=== PATIENT | male | born 1950 | race Caucasian/White ===

== ENCOUNTER → 2016-11-03 | Outpatient (CLI) | payer MEDICARE, BC ==
[2016-11-03 09:10] LABS: EKG EKG PERFORMED
[2016-11-03 09:20] LABS: CH 33.1; CHCM 35.6; HCT 44.7 % (39.0-53.0); HDW 2.94; HGB 15.1 gm/dL (13.0-17.5); MCH 31.5 pg (25.0-35.0); MCHC 33.8 g/dL (31.0-37.0); MCV 93.2 fL (80.0-100.0); RDW 13.9 % (11.5-15.5); WBC 5.9 k/uL (3.8-10.6)
[2016-11-03 09:38] LABS: INR 1.1 (<1.2); Partial Thromboplastin Time 27.7 sec (22.0-30.0); Prothrombin Time 11.3 sec (9.0-12.0)
[2016-11-03 09:46] LABS: ALT 38 U/L (21-72); AST 22 U/L (17-59); Alkaline Phosphatase 70 U/L (38-126); Anion Gap 9 mmol/L; Blood Urea Nitrogen 11 mg/dL (9-20); Calcium 9.1 mg/dL (8.4-10.2); Carbon Dioxide 25 mmol/L (22-30); Chloride 106 mmol/L (98-107); Glucose 98 mg/dL (74-99); Non-African American GFR(MDRD) >60 (>60 ml/min/1.73 sqM); Potassium 4.3 mmol/L (3.5-5.1); Sodium 140 mmol/L (137-145); Total Bilirubin 0.9 mg/dL (0.2-1.3); Total Protein 6.9 g/dL (6.3-8.2)
[2016-11-03 10:16] LABS: Appearance,Urine Clear (Clear); Bilirubin,Urine Negative (Negative); Glucose,Urine (UA) Negative (Negative); Ketones,Urine Negative (Negative); Leukocyte Esterase,Urine Negative (Negative); Nitrite,Urine Negative (Negative); PH, Urine 6.5 (5.0-8.0); Protein,Urine Negative (Negative); UA Billing (MACRO vs. MICRO) CHEM; Urobilinogen,Urine <2.0 mg/dL (<2.0)
== END | disposition home or self-care (01) ==
LOC: LABPAT 08:54
PROVIDERS: ATTEND Orthopaedic Surgery Sports Medicine
DX: Z01.810 Encounter for preprocedural cardiovascular examination (principal); Z01.812 Encounter for preprocedural laboratory examination
CPT/HCPCS: 80053; 81003; 85027; 85610; 85730; 87070; 93005

== ENCOUNTER 2016-11-20 10:29 | Inpatient (IN) | payer MEDICARE, BC ==
[2016-11-12 15:28] VITALS: BMI 29.4
[~2016-11-20 10:29] MED LIST: ACETAMINOPHEN TAB 500 MG TAB PO ONE; DEXAMETHASONE SOD PHOSPHATE 10 MG/ML 1 ML VIAL IV ONE; LIDOCAINE 1% 20 ML VIAL (10MG/ML) FOR IV START INTRADERMA PRN; MELOXICAM 7.5 MG TAB PO ONE; MIDAZOLAM 2 MG/2 ML VIAL IV PRN; ONDANSETRON 4 MG/2 ML VIAL IVP ONE; ONDANSETRON 4 MG/2 ML VIAL IVP PRN; SCOPOLAMINE 1.5MG/72HR PATCH TRANSDERM ONE; TRANEXAMIC ACID 1,000 MG in SODIUM CHLORIDE 0.9% 100 ML IVPB ONE; ceFAZolin 2 GM in SODIUM CHLORIDE 0.9% 100 ML IVPB ONE
[2016-11-20] MEDS: LACTATED RINGERS 1,000 ML IV SCH (11:09)
[2016-11-20] MEDS ORDERED: PROPOFOL 10 MG/ML 20 ML VIAL IV ONE (12:12)
[2016-11-20] MEDS ORDERED: ceFAZolin 3,000 MG in SODIUM CHLORIDE 0.9% IRRIGATIO 3,000 ML IRRIGATION ONE (12:12)
[2016-11-20] MEDS ORDERED: LIDOCAINE 1% INJ 10MG/ML (20 ML MDV) ONE (12:12)
[2016-11-20] MEDS ORDERED: TRANEXAMIC ACID 1,000 MG/10 ML VIAL ONE (12:12)
[2016-11-20] MEDS ORDERED: SODIUM CHLORIDE 0.9% 100 ML BAG ONE (12:12)
[2016-11-20] MEDS ORDERED: MORPHINE SULFATE (PF) 0.3 MG/0.3 ML SYR ONE (12:12)
[2016-11-20] MEDS ORDERED: MIDAZOLAM 2 MG/2 ML VIAL ONE (12:12)
[2016-11-20] MEDS ORDERED: fentaNYL (PF) 50 MCG/ML 2 ML AMP ONE (12:12)
[2016-11-20] MEDS: ROPIVACAINE 246.25 MG, EPINEPHrine 0.5 MG, KETOROLAC 30 MG, cloNIDine HCL/PF 80 MCG, WA... MISCELLANE ONE ×10 (12:42→13:36)
[2016-11-20] MEDS ORDERED: LACTATED RINGERS 1,000 ML IV ONE (14:06)
[2016-11-20] MEDS ORDERED: NALOXONE 0.4 MG/ML 1 ML VIAL IV PRN ×2 (14:26→16:13)
[2016-11-20] MEDS ORDERED: ONDANSETRON 4 MG/2 ML VIAL IVP PRN ×2 (14:26→16:13)
[2016-11-20] MEDS ORDERED: HYDROcodone/APAP 7.5-325MG 1 EACH TAB PO PRN ×2 (14:26)
[2016-11-20] MEDS ORDERED: NA PHOS,M-B/NA PHOS,DI-BA 133 ML ENEMA RECTAL PRN (14:26)
[2016-11-20] MEDS ORDERED: HYDROmorphone 1 MG/ML 1 ML SYRINGE IVP PRN ×3 (14:26)
[2016-11-20] MEDS ORDERED: ACETAMINOPHEN TAB 325 MG TAB PO PRN (14:26)
[2016-11-20] MEDS ORDERED: BISACODYL 10 MG SUPP RECTAL PRN (14:26)
[2016-11-20] MEDS ORDERED: DIAZEPAM 5 MG TAB PO PRN (14:26)
[2016-11-20] MEDS ORDERED: MAGNESIUM HYDROXIDE 2,400 MG/10 ML CUP PO PRN (14:26)
[2016-11-20] MEDS ORDERED: TEMAZEPAM 15 MG CAP PO PRN (14:26)
[2016-11-20] MEDS ORDERED: traMADol 50 MG TAB PO PRN (14:26)
--- NOTE | 2016-11-20 15:16 | XR ---
EXAMINATION TYPE: XR knee limited RT DATE OF EXAM: 11/20/2016 COMPARISON: NONE TECHNIQUE: Two views submitted HISTORY: Post op FINDINGS: There is a prosthetic knee in near anatomic alignment. There is soft tissue edema and emphysema. IMPRESSION: 1. Postoperative change. Appears in near-anatomic alignment
[2016-11-20] MEDS ORDERED: MORPHINE SULFATE 4 MG/ML SYRINGE IVP PRN (16:13)
[2016-11-20] MEDS: diphenhydrAMINE 50 MG/ML 1 ML VIAL IVP PRN (16:24)
[2016-11-20] MEDS: ASPIRIN 325 MG TAB PO SCH (20:47)
[2016-11-20] MEDS: SENNOSIDES-DOCUSATE SODIUM 1 EACH TAB PO SCH (20:47)
[2016-11-20] MEDS: ceFAZolin 2 GM in SODIUM CHLORIDE 0.9% 100 ML IVPB SCH (20:47)
--- NOTE | 2016-11-20 23:04 | CONS ---
CONSULTATION DATE OF CONSULTATION: 11/20/2016 REASON FOR CONSULTATION: Medical management requested by Dr. Paredes. CONSULTATION: This is a very pleasant 66-year-old patient of Dr. Bustos. His is present at bedside. The patient's chronic stable medical conditions include hypertension and arthritis in the joints. The patient also has diverticulosis. Patient did undergo right total knee arthroplasty. Pain is well controlled. Postoperatively the patient did have some nausea. Denies any cardiac history. No chest pain or shortness of breath. Lying in bed. REVIEW OF SYSTEMS: CONSTITUTIONAL: Tired. HEENT: None. RESPIRATORY: None. CARDIOVASCULAR: None. GASTROINTESTINAL: As above. : None. MUSCULOSKELETAL: Pain in multiple joints, including the other knee. DERMATOLOGIC: None. HEMATOLOGIC: None. LYMPHATIC: None. PSYCHIATRY: None. NEUROLOGIC: None. PAST MEDICAL HISTORY: 1. Hypertension. 2. Osteoarthritis. 3. Diverticulitis. 4. Hepatitis as a teenager. 5. Rheumatic fever and heart murmur as a child. PAST SURGICAL HISTORY: 1. Joint replacement. 2. Four to five arthroscopic surgical bilateral knees. 3. Bilateral rotator cuff repair. 4. Right wrist surgery. 5. Left elbow surgery. 6. Bilateral Achilles tendon repair. 7. Right hip replaced. 8. Left knee replaced. 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 Does not smoke or drink alcohol. Retired. . FAMILY HISTORY: Reviewed; lung cancer. HOME MEDICATIONS: 1. PreserVision Areds 2 soft gel 1 capsule p.o. daily. 2. Cozaar 50 mg p.o. daily. 3. Eagle 5 one to two tablets q.6 hours p.r.n. 4. Flexeril 10 mg q.8 p.r.n. ALLERGIES: NONE. PHYSICAL EXAMINATION: Temperature 97, pulse 47, respiration 16, blood pressure 109/58, pulse ox 97% on room air. GENERAL APPEARANCE: Average build. Lying in bed. Comfortable. EYES: Pupils equal. Conjunctivae normal. HEENT: Oral cavity normal. NECK: JVD unable to assess. Mass not palpable. RESPIRATORY: Effort normal. LUNGS: Fair air entry. CARDIOVASCULAR: First and second sounds normal. No edema. ABDOMEN: Soft, non-tender. Liver and spleen not palpable. LYMPHATICS: No lymph node palpable in neck or axillae. PSYCHIATRY: Alert and oriented x3. Mood and affect normal. EXTREMITIES: Right knee in a dressing. INVESTIGATIONS: Blood work from 11/03/2016 shows white count of 5.9, hemoglobin 15.1, potassium 4.3. BUN creatinine normal. EKG from 11/03/2016 shows sinus bradycardia. ASSESSMENT: 1. Right total knee arthroplasty. 2. Primary osteoarthritis in multiple joints, including the left knee. 3. Colonic diverticulosis, chronic, asymptomatic. 4. Essential hypertension. 5. Nausea as a side effect of pain medication. 6. Sinus bradycardia, physiological. PLAN: Patient is getting aspirin 325 p.o. b.i.d. for DVT prophylaxis per Dr. Paredes. Home medications will be resumed. Care was discussed with patient and his at the bedside. Cozaar will be resumed. Questions were answered. The patient should follow up with Dr. Bustos upon discharge. Thank you, Dr. Paredes. MMSALVADOR / TYRESE: [id number] /
[2016-11-21] MEDS: diphenhydrAMINE 50 MG/ML 1 ML VIAL IVP PRN ×2 (02:22→11:23)
[2016-11-21] MEDS: ceFAZolin 2 GM in SODIUM CHLORIDE 0.9% 100 ML IVPB SCH (04:50)
[2016-11-21 07:46] LABS: Basophils % (A) 0 %; CH 31.8; Eosinophils % (A) 0 %; HCT 36.9 % (39.0-53.0); HGB 12.7 gm/dL (13.0-17.5); Luc # (Auto) 0.12; Luc % (Auto) 1; Lymphocytes # (A) 0.7 k/uL (1.0-4.8); Lymphocytes % (A) 5 %; MCH 31.5 pg (25.0-35.0); MCHC 34.5 g/dL (31.0-37.0); MCV 91.3 fL (80.0-100.0); Mean Platelet Volume 7.9; Monocytes # (A) 0.7 k/uL (0-1.0); Monocytes % (A) 5 %; Neutrophils # (A) 13.2 k/uL (1.3-7.7); Neutrophils % (A) 90 %; RBC 4.04 m/uL (4.30-5.90); RDW 13.3 % (11.5-15.5); WBC 14.7 k/uL (3.8-10.6)
[2016-11-21] MEDS: ASPIRIN 325 MG TAB PO SCH ×2 (08:25→20:49)
[2016-11-21] MEDS: MULTIVITAMINS, THERA 1 EACH TAB PO SCH (08:25)
--- NOTE | 2016-11-21 08:39 | OP ---
OPERATIVE REPORT DATE OF PROCEDURE: 11/20/2016. PREOPERATIVE DIAGNOSIS: Right knee osteoarthrosis. POSTOPERATIVE DIAGNOSIS: Right knee osteoarthrosis. OPERATION: Right total knee arthroplasty. SURGEON: Adrien Paredes MD. SENIOR DEVOPS ENGINEER: Michael Hadley PA-C. ANESTHESIA: Spinal with sedation. ESTIMATED BLOOD LOSS: 100 mL. TOURNIQUET TIME: 63 minutes at 250 mmHg. COMPLICATIONS: None apparent. DRAINS: None. DISPOSITION: Postanesthesia care unit. INDICATIONS: Yrn is a 66-year-old male with longstanding history of right knee pain. His history and physical examination are consist with advanced right knee osteoarthrosis. He has been through significant nonoperative management up to this point. Further treatment options were discussed. He has decided to go for the right total knee arthroplasty. The risks of procedure were discussed with him in detail. These risks include, but are not limited to, risk of infection, nerve damage, bleeding, pain, and a small risk of deep vein thrombosis which could lead to fatal pulmonary embolism. There is also risk of loosening of the implant which could require revision operation. The patient understands these risks. All of his questions were answered to his satisfaction. An appropriate informed consent was obtained. PROCEDURE: The patient is identified in the preoperative holding area. Surgical sites marked by both the patient and myself. He is given 2 g of Ancef IV for prophylactic purposes. He was then transferred to the operative suite, was placed supine on the operating table. Spinal anesthetic was then administered and dosed per the Anesthesia Department without apparent complication. Examination under anesthesia was then performed. The patient was 2-3 degrees shy of full extension. He had 100 degrees of flexion. The medial collateral ligament, lateral collateral ligament and posterior cruciate ligaments were stable. Tourniquet was then placed high on the right upper thigh well-padded in preparation for surgery. The patient's right lower extremity then prepped and draped in usual sterile fashion. Standard surgical pause then undertaken to ensure that we were operating the correct site and that appropriate preop antibiotics were given. All staff in the room in agreement and we proceeded. The outlines of the patella were marked with surgical pen. A planned 12 cm vertical incision centered over the patella was marked with surgical pen. Leg was then exsanguinated with an Esmarch dressing. The knee was then flexed and tourniquet was inflated to 250 mmHg. The total tourniquet time for the procedure was 63 minutes. Incision was then made with a 10 blade scalpel. Dissection was carried out sharply of the overlying fascia. Great care was taken to minimize the skin flaps. The knee was then exposed using a standard medial parapatellar approach. A small cuff of quadriceps tendon was left for suturing. He was in a bit of varus preoperatively. A standard medial release was then made. Superficial medial collateral ligament was dissected off of the bone around the posterior aspect of the proximal tibia. The medial meniscus was then excised as well. The lateral meniscus was also released anteriorly. The leg was then externally rotated. The patella was then everted. The knee was flexed. The retractors were then placed to protect the collateral ligaments. I then proceeded to remove the infrapatellar fat pad. This was excised sharply tangentially with fibers of the patellar tendon. I then proceeded to remove peripheral osteophytes. This was done with a rongeur. I then proceeded with the distal femoral resection. He did have near full extension. A planned 9 mm resection was then done. The femoral canal was then entered in the midline of the femur approximately 10 mm anterior to the origin of the posterior cruciate ligament. The orlando was then advanced down the center of the femur and placed intramedullary. Based on preop radiographs the angle between the anatomic and mechanical axis of the femur was approximately 4-5 degrees. The valgus angle of this femoral cutting guide was then set at 4 degrees for the right knee. The distal femoral cutting guide was then advanced over the intramedullary orlando. This was seated firmly against the femur. I then as mentioned planned to take 9 mm off the distal femur. The cutting block was then secured onto the femur with pins. The jig was then removed. The distal femoral cut was made through the slot of the block. The pins were then removed. The distal femoral cutting block was removed. The accuracy of the distal femoral cut was checked with 2 flat bars. I then proceeded to femoral sizing. The posterior referencing sizing guide was held firmly against the resected distal surface of the femur. Posterior condyles were then resting on the posterior plane of the guide. The sizing stylus was then placed on the anterior femur. The size was measured at size 10. I then assessed for femoral rotation. The plan was for 3 degrees of external rotation. 3 degrees of external rotation was placed onto the jig. These holes were then marked. I then confirmed the rotation by 3 separate methods. This was done using the epicondylar axis as well as Whitesides line and posterior referencing. It was deemed that the external rotation was proper. I then went forward with placing the femoral cutting block. This was placed over the previously placed pin holes. The Angel[place] was then placed on the anterior slots to ensure that we would not notch the anterior femur with the anterior femoral cut. I then proceeded with the anterior femoral cut. This was flush with the anterior cortex of the femur. The posterior cuts were then made followed by the anterior chamfer cut, and then the posterior chamfer cut. The cutting block was then removed. Throughout the resection the collateral ligaments were protected with retractors. I then placed a trial size 10 femur. It fit very nicely medial-lateral and fit flush with the distal end of the femur. The drill holes were then made. I then proceeded with the tibial cut. I planned for cruciate retaining knee. The guide was then placed and set for varus, valgus and for slope. The height was set for approximate 2 mm resection from the medial tibial plateau which was the lower side. I was happy with the alignment and amount of resection. The cutting block was then pinned to the proximal tibia. The alignment orlando was removed and the proximal tibia was resected with a reciprocating saw. Again this was done with retractors protecting the collateral ligaments as well as the posterior cruciate ligament. I then proceeded to evaluate the flexion and extension gaps. A 10 mm block was then placed. The flexion-extension gaps were equal. I then proceeded with resection of posterior osteophytes. He had very minimal posterior osteophytes. This was done using a curved osteotome. This resected the posterior osteophytes and posterior capsular stripping was also done off the posterior aspect of the femur at this time. The osteophytes were then removed. I then proceeded with resection of the patella. The thickness of patella was measured using the caliper. The thickness was 24 mm. The thickness of the anticipated patellar dome was then taken into account. Resection was then performed and confirmed to be equal in 4 quadrants using a caliper. Approximately 14 mm of bone remained after the resection. A 38 x 9.5 mm standard patellar trial was then placed. The holes were then drilled. The trial was then placed. I then proceeded with sizing the tibial plate. A size E tibial plate fit very nicely. I then placed the trial femur tibial tray and patellar button. A 10 mm trial tibial insert was also placed. The components fit very nicely. He had full flexion and extension. The flexion-extension gaps were equal and stable to varus and valgus stress. The patella tracked appropriately. The tibial tray rotation was then marked with a Bovie. This was externally rotated properly. I then proceed with tibial preparation. I first drilled the femoral holes and removed femoral component. The tibial tray was then set for proper external rotation, as well as medial lateral placement onto the tibia. It was then pinned into place. I then proceeded with punching the keel. I then decided to proceed with cementing of all of our components. The knee was thoroughly irrigated with sterile saline solution via pulse lavage. The lateral geniculate artery was identified and cauterized. All blood was removed from the bone of the tibia, femur and patella with pulse lavage. I then proceed with cementing. Two packs of antibiotic bone cement were prepared on the back table by the director surgical. I then proceed with cementing of the tibia first. The cement was impacted into the keel as well as deeply seated into the bone. A second coat of cement was then placed. The tibia was then impacted into place. Excess cement was removed with Sanjay's and jokers. I then proceeded with cementing of the femoral component. Femoral component was also cemented using standard technique. Excess cement was removed. A 10 mm trial insert was then placed into the knee. It was brought into full extension with a constant axial load placed until the cement hardened. The patellar component was then cemented. This held firmly with a compressive device until the cement dried. When the cement had dried, the knee was taken out of extension. All excess cement was removed from around the prosthesis. I then trialed the knee with a 10 mm insert. The flexion-extension gaps were appropriate. The knee was stable. It came into full extension. I decided to go for the 10 mm cross-linked cruciate-retaining tibial insert. Polyethylene was then placed onto the tibial tray and locked. The knee was then reduced. The knee was again further irrigated with sterile saline solution with antibiotic added. The tourniquet was then deflated. Total tourniquet time for the procedure was 63 minutes at 250 mmHg. Final components were a [place] persona size 10 cruciate-retaining femoral component, a size E tibial tray, a 10 mm cruciate retaining polyethylene insert and a 38 x 9.5 mm patella. I then proceeded with closure. Again, the knee was thoroughly irrigated. The quadriceps tendon and medial retinaculum were reapproximated with #2 Ethibond suture. The extensor mechanism was then closed with a running #2 Quill suture. Subcutaneous tissues were then closed with 2-0 Vicryl interrupted suture. The skin was closed with a running 3-0 Quill suture. Dermabond was applied to the incision. Sterile compressive dressings were then applied. All sponge, needle counts were deemed correct prior to closure. The patient tolerated the procedure apparent complication. He was transferred recovery room in stable condition. MMODL / IJN: [id number] /
--- NOTE | 2016-11-21 09:38 | P.PN ---
Subjective Principal diagnosis: Status post right total knee arthroplasty Patient is pleasant 66-year-old male seen at bedside this morning. He's postop day #1 from right total knee arthroplasty. He has pain at surgical site which is expected. He has no new complaints. Review of systems negative for numbness , tingling, calf pain, fever, chills, chest pain, shortness breath or other. Objective - Vital Signs Vital signs: Vital Signs Temp 97.6 F 11/21/16 07:20 Pulse 52 L 11/21/16 07:20 Resp 18 11/21/16 07:20 BP 119/75 11/21/16 07:20 Pulse Ox 97 11/21/16 07:20 Intake & Output 11/20/16 11/21/16 11/21/16 18:59 06:59 18:59 Intake Total 1301 800 Output Total 650 1700 Balance 651 800 -1700 Weight 92.986 kg Intake: IV 1301 Intake, IV Titration 800 Amount Lactated Ringers 1,000 ml 800 @ 100 mls/hr IV .Q10H MARLENA Rx#:[id number] Output: Urine 550 1700 Uretheral (Mcnally) 1700 Estimated Blood Loss 100 Other: Voiding Method Indwelling Catheter - Exam Inspection of the right lower extremity shows a benign surgical wound. There is no active bleeding or drainage. Neurovascular status with motor and sensation is intact throughout the right lower extremity. Calf is soft and nontender. There is 2+ dorsalis pedis pulse and less than 2 second cap refill. - Constitutional General appearance: Present: no acute distress - Psychiatric Psychiatric: Present: A&O x's 3, appropriate affect, intact judgment & insight - Labs CBC & Chem 7: 11/21/16 07:14 Labs: Abnormal Lab Results - Last 24 Hours (Table) 11/21/16 Range/Units 07:14 WBC 14.7 H (3.8-10.6) k/uL RBC 4.04 L (4.30-5.90) m/uL Hgb 12.7 L (13.0-17.5) gm/dL Hct 36.9 L (39.0-53.0) % Neutrophils # 13.2 H (1.3-7.7) k/uL Lymphocytes # 0.7 L (1.0-4.8) k/uL Assessment and Plan (1) Osteoarthritis of right knee Narrative/Plan: He will continue with routine postop orthopedic protocol including pain management, wound care, physical therapy, DVT prophylaxis and medical management. Expect discharge to home in the next 1-2 days. Status: Acute Time with Patient: Less than 30
--- NOTE | 2016-11-21 12:18 | P.PN ---
Progress Note - Text DATE OF SERVICE: 11/21/2016 PRESENTING COMPLAINT: Knee pain HISTORY OF PRESENT ILLNESS: 66-year-old male status post right total knee arthroplasty. INTERVAL HISTORY: 11/21/2016: Sitting up in a recliner appears comfortable. Didn't sleep well feeling a little sleepy and tired today , no nausea no vomiting, Tolerating his diet eating 100 percent. Working with physical therapy, no BM yet. REVIEW OF SYSTEMS: Done for constitutional ,cardiovascular, GI, pulmonary with relevant findings as above. CURRENT MEDICATIONS Aspirin 325 mg by mouth twice a day, Dulcolax 10 mg rectal daily when necessary. Valium 2.5 mg by mouth every 8 hours. Benadryl 25 mg IV push every 6 hours when necessary, senna/docusate sodium 2 tabs by mouth at bedtime, temazepam 15 mg by mouth at bedtime, tramadol 50 mg by mouth every 6 hours. PHYSICAL EXAM VITAL SIGNS: Temperature 97.6, pulse 52, respiratory rate 18, blood pressure 119/75, oxygen saturation 97% on room air. GENERAL APPEARANCE: Sitting in the recliner, appears comfortable. EYES: Pupils equal. Conjunctiva normal. NECK: JVD not raised. Mass not palpable. RESPIRATORY: Respiratory effort normal. Lungs clear to auscultation. CARDIOVASCULAR: First and second sounds normal. No edema. ABDOMEN: Soft. Liver and spleen not palpable. No tenderness. No mass palpable. PSYCHIATRY: Alert and oriented x3. Mood and affect normal. EXTREMITIES: Right knee covered with dry dressing. INVESTIGATIONS: White blood cell count 14.7, hemoglobin 12.7. ASSESSMENT: -Right total knee arthroplasty. -Leukocytosis, reactive likely from surgery. -Primary stressor arthritis multiple joints, including the left knee. -Colonic diverticulosis, chronic, asymptomatic. -Essential hypertension. -Nausea as a side effect pain medication, resolved -Sinus bradycardia, physiological. PLAN: Continue current medication treatment plan, discharge planning for the next 24- 48 hours, questions answered. We'll follow closely. SEA[employer]OD SERVICE TEAM MEMBER statement: Patient was seen and examined by nurse practitioner Michelle Segundo and all elements of the case discussed with attending Dr. Valente
[2016-11-21] MEDS: LACTATED RINGERS 1,000 ML IV SCH (12:53)
--- NOTE | 2016-11-21 12:55 | P.PN ---
Progress Note - Text Date:11/21 Time:701am Patient is status post tkr]. Patient seen this morning with VAS score of 2.no c/ o of pruritus, no c/o nausea/vomiting, comfortable and doing well.
[2016-11-21] MEDS: HYDROcodone/APAP 10-325MG 1 EACH TAB PO PRN ×3 (13:25→20:49)
[2016-11-21] MEDS: diphenhydrAMINE 25 MG CAP PO PRN (17:37)
[2016-11-21] MEDS: SENNOSIDES-DOCUSATE SODIUM 1 EACH TAB PO SCH (20:49)
[2016-11-22] MEDS: HYDROcodone/APAP 10-325MG 1 EACH TAB PO PRN ×5 (01:08→23:34)
[2016-11-22 03:41] VITALS: RESP 16
[2016-11-22] MEDS: LACTATED RINGERS 1,000 ML IV SCH ×3 (06:41→08:17)
[2016-11-22] MEDS: MULTIVITAMINS, THERA 1 EACH TAB PO SCH (06:55)
[2016-11-22] MEDS: ASPIRIN 325 MG TAB PO SCH ×2 (06:55→20:04)
[2016-11-22] MEDS: diphenhydrAMINE 25 MG CAP PO PRN ×2 (06:58→18:38)
[2016-11-22] MEDS ORDERED: KETOROLAC 30 MG/ML 1 ML VIAL IVP STA (09:28)
--- NOTE | 2016-11-22 09:32 | P.PN ---
Subjective Principal diagnosis: Osteoarthritis right knee. Status post total right knee arthroplasty. This is a 66-year-old male who is status post total right knee arthroplasty. He is doing fairly well from an orthopedic standpoint. He states that he had a bad night last night with pain. He is still rating his pain at 8/10. He does not feel ready for discharge today. Objective - Vital Signs Vital signs: Vital Signs Temp 96.4 F L 11/22/16 06:50 Pulse 69 11/22/16 06:50 Resp 16 11/22/16 07:00 BP 121/58 11/22/16 06:50 Pulse Ox 99 11/22/16 06:50 Intake & Output 11/21/16 11/22/16 11/22/16 18:59 06:59 18:59 Intake Total 360 240 Output Total 2300 Balance -1940 240 Weight 92.986 kg Intake: Oral 360 240 Output: Urine 2300 Uretheral (Mcnally) 1700 Other: Voiding Method Toilet Toilet # Voids 1 1 - Exam This is a pleasant 66-year-old male in no acute distress. He is alert and oriented 3. Exam of the right lower extremity reveals that his incision looks good. There is no erythema or ecchymosis. There is mild soft tissue swelling about the knee and lower leg. There is mild pain with palpation about the proximal calf and behind the knee. He has full foot and ankle motion without difficulty or pain. Homans is negative. Neurovascular status to the lower extremity is intact. - Labs CBC & Chem 7: 11/21/16 07:14 Assessment and Plan (1) Status post right knee replacement Status: Acute (2) Osteoarthritis of right knee Status: Acute Plan: The clinical findings are discussed the patient. We'll continue to work on his pain management. We will plan discharge to home tomorrow.
[2016-11-22] MEDS: hydrOXYzine PAMOATE 25 MG CAP PO PRN ×3 (12:09→23:34)
[2016-11-22] MEDS ORDERED: MAGNESIUM HYDROXIDE 2,400 MG/10 ML CUP PO PRN (15:26)
--- NOTE | 2016-11-22 15:29 | P.PN ---
Progress Note - Text DATE OF SERVICE: 11/22/2016 PRESENTING COMPLAINT: Knee pain HISTORY OF PRESENT ILLNESS: 66-year-old male status post right total knee arthroplasty. INTERVAL HISTORY: 11/22/2016: Lying in bed appears tired. States he really didn't sleep well at all last night only a couple of hours of sleep. No nausea no vomiting. Tolerating his diet eating about 75-100% of his meals. Continues to work with physical therapy , no BM yet. 11/21/2016: Sitting up in a recliner appears comfortable. Didn't sleep well feeling a little sleepy and tired today , no nausea no vomiting, Tolerating his diet eating 100 percent. Working with physical therapy, no BM yet. REVIEW OF SYSTEMS: Done for constitutional ,cardiovascular, GI, pulmonary with relevant findings as above. CURRENT MEDICATIONS Aspirin 325 mg by mouth twice a day, Dulcolax 10 mg rectal daily when necessary. Valium 2.5 mg by mouth every 8 hours. Benadryl 25 mg IV push every 6 hours when necessary, senna/docusate sodium 2 tabs by mouth at bedtime, temazepam 15 mg by mouth at bedtime, tramadol 50 mg by mouth every 6 hours. PHYSICAL EXAM VITAL SIGNS: Temperature 98.1, pulse 54, respirations 16, blood pressure 133/75, oxygen saturation 97% on room air. GENERAL APPEARANCE: Lying in the bed, appears tired. EYES: Pupils equal. Conjunctiva normal. NECK: JVD not raised. Mass not palpable. RESPIRATORY: Respiratory effort normal. Lungs clear to auscultation. CARDIOVASCULAR: First and second sounds normal. No edema. ABDOMEN: Soft. Liver and spleen not palpable. No tenderness. No mass palpable. PSYCHIATRY: Alert and oriented x3. Mood and affect normal. EXTREMITIES: Right knee covered with dry dressing. INVESTIGATIONS: None new ASSESSMENT: -Right total knee arthroplasty. -Leukocytosis, reactive likely from surgery. -Primary stressor arthritis multiple joints, including the left knee. -Colonic diverticulosis, chronic, asymptomatic. -Essential hypertension. -Nausea as a side effect pain medication, resolved -Sinus bradycardia, physiological. PLAN: Continue current medication treatment plan, discharge planning for the next 24- 48 hours, questions answered. We'll follow closely. TIMBER SUPERVISOR statement: Patient was seen and examined by nurse practitioner Michelle Segundo and all elements of the case discussed with attending Dr. Valente
[2016-11-22] MEDS: MAGNESIUM HYDROXIDE 2,400 MG/10 ML CUP PO SCH (20:04)
[2016-11-22] MEDS: SENNOSIDES-DOCUSATE SODIUM 1 EACH TAB PO SCH (20:04)
[2016-11-23] MEDS: hydrOXYzine PAMOATE 25 MG CAP PO PRN ×2 (04:47→09:52)
[2016-11-23] MEDS: HYDROcodone/APAP 10-325MG 1 EACH TAB PO PRN ×2 (04:47→09:52)
[2016-11-23 07:24] LABS: Basophils # (A) 0.1 k/uL (0-0.2); Basophils % (A) 1 %; CH 32.4; CHCM 35.2; Eosinophils # (A) 0.3 k/uL (0-0.7); Eosinophils % (A) 4 %; HCT 33.6 % (39.0-53.0); HDW 2.99; HGB 11.5 gm/dL (13.0-17.5); Luc % (Auto) 2; Lymphocytes # (A) 1.2 k/uL (1.0-4.8); Lymphocytes % (A) 17 %; MCH 31.8 pg (25.0-35.0); MCHC 34.3 g/dL (31.0-37.0); MCV 92.8 fL (80.0-100.0); Mean Platelet Volume 7.8; Monocytes # (A) 0.6 k/uL (0-1.0); Monocytes % (A) 9 %; Neutrophils # (A) 4.5 k/uL (1.3-7.7); Neutrophils % (A) 68 %; RBC 3.62 m/uL (4.30-5.90); RDW 14.2 % (11.5-15.5); WBC 6.6 k/uL (3.8-10.6); WBC (Perox) 6.89
--- NOTE | 2016-11-23 08:58 | PN ---
PROGRESS NOTE DATE OF SERVICE: 11/21/2016. ATTENDING NOTE: This patient was seen and examined by me. I discussed with my nurse practitioner, Ms. Segundo. This patient was seen by me yesterday 11/21/16, status post right knee surgery. Sitting up. Some pain is present in the joint. Did work with physical therapy. No chest pain. No shortness of breath. EXAMINATION: On examination, afebrile, pulse 76, respiration 18, blood pressure 125/84. RESPIRATORY: Effort. Lungs, fair air entry. CARDIOVASCULAR: First and second sounds are normal. White count 14.7, hemoglobin 12.7. ASSESSMENT: 1. Right total knee arthroplasty. 2. Leukocytosis reactive likely from surgery. No clinical evidence of infection. Incision healing well. Follow with Orthopedics. Care was discussed with the patient. Continue current medication and treatment plan. MMODL / IJN: [id number] /
--- NOTE | 2016-11-23 09:44 | P.DS ---
Providers Date of admission: 11/20/16 10:29 Expected date of discharge: 11/23/16 Attending physician: Adrien Paredes Consults: 11/20/16 14:26 Consult Physician Routine Consulting Provider: Sina Bustos Consult Reason/Comments: post op medical management Do you want consulting provider notified?: Yes 11/20/16 15:44 Consult Physician Routine Consulting Provider: Mickey Valente Consult Reason/Comments: medical managment Do you want consulting provider notified?: Yes Primary care physician: Sina Bustos - Discharge Diagnosis(es) (1) Status post right knee replacement Current Visit: Yes Status: Acute (2) Osteoarthritis of right knee Current Visit: Yes Status: Acute Hospital Course: This is a 66-year-old male who was last seen with complaint of continued right knee pain. The patient has a known history of degenerative arthritis of the right knee and presents to discuss surgical options. After discussion and consideration the patient elects to proceed with total right knee arthroplasty. The patient is seen preoperatively by his primary care physician and cleared for surgery. The patient is admitted to [facility] for total right knee arthroplasty. The procedures performed without complication or sequelae. Patient is doing well postoperatively. Vital signs are stable at discharge. Labs are stable at discharge. the patient is ambulating well with walker with minimal assistance. The patient is discharged to home on postop day #3 pending medical clearance. Please see orders and refer to the [facility] rec for accurate list of medications. Patient Condition at Discharge: Good Plan - Discharge Summary New Discharge Prescriptions: New Aspirin 325 mg PO BID #60 tab Docusate [Colace] 100 mg PO BID #60 capsule HYDROcodone/APAP 10-325MG [Dalton 10-325] 1 tab PO Q4HR PRN #60 tab PRN Reason: Pain No Action Cyclobenzaprine [Flexeril] 10 mg PO Q8H PRN #20 tablet PRN Reason: Spasms Losartan [Cozaar] 50 mg PO DAILY HYDROcodone/APAP 5-325MG [Dalton 5-325] 1 - 2 tab PO Q6HR PRN PRN Reason: Pain Vit C/E/Zn/Coppr/Lutein/Zeaxan [Preservision Areds 2 Softgel] 1 cap PO DAILY Discharge Medication List Cyclobenzaprine [Flexeril] 10 mg PO Q8H PRN #20 tablet 10/21/13 [Rx] HYDROcodone/APAP 5-325MG [Dalton 5-325] 1 - 2 tab PO Q6HR PRN 11/12/16 [History] Losartan [Cozaar] 50 mg PO DAILY 11/12/16 [History] Vit C/E/Zn/Coppr/Lutein/Zeaxan [Preservision Areds 2 Softgel] 1 cap PO DAILY [History] Aspirin 325 mg PO BID #60 tab 11/21/16 [Rx] Docusate [Colace] 100 mg PO BID #60 capsule 11/21/16 [Rx] HYDROcodone/APAP 10-325MG [Dalton 10-325] 1 tab PO Q4HR PRN #60 tab 11/21/16 [Rx] Follow up Appointment(s)/Referral(s): Adrien Paredes MD [STAFF PHYSICIAN] - 2 Weeks [facility] Visiting Nurse, [NON-STAFF] - 1 Week Activity/Diet/Wound Care/Special Instructions: Take meds as directed Keep wound clean and dry Weight-bear as tolerated Follow up with Dr. Paredes in office May shower in 48 hours Discharge Disposition: HOME WITH HOME HEALTH SERVICES
[2016-11-23 09:51] VITALS: BP 151/72; TEMP 98.5
[2016-11-23] MEDS: MULTIVITAMINS, THERA 1 EACH TAB PO SCH (09:53)
[2016-11-23] MEDS: ASPIRIN 325 MG TAB PO SCH (09:53)
[2016-11-23] MEDS: MAGNESIUM HYDROXIDE 2,400 MG/10 ML CUP PO SCH (09:55)
[2016-11-23 10:38] VITALS: PULSE 81
--- NOTE | 2016-11-23 11:01 | PN ---
PROGRESS NOTE DATE OF SERVICE: 11/22/16 ATTENDING NOTE: This patient was seen and examined by me. I discussed this with the nurse practitioner Ms. Segundo. The patient status post right total knee arthroplasty. The patient did not sleep too well last night. Breathing is okay. No chest pain. PHYSICAL EXAMINATION: On exam, lungs are clear. Cardiovascular: First and second sounds normal. ASSESSMENT: Right total knee arthroplasty. PLAN: Continue current medication and treatment plan. Care was discussed with the patient and . FITO / TYRESE: [id number] /
--- NOTE | 2016-11-23 11:31 | US ---
EXAMINATION TYPE: US venous doppler duplex LE RT DATE OF EXAM: 11/23/2016 11:21 AM COMPARISON: CLINICAL HISTORY: Calf pain, R/O dvt. On aspirin. Rt knee replacement x . SIDE PERFORMED: Right TECHNIQUE: The lower extremity deep venous system is examined utilizing real time linear array sonog luis m with graded compression, doppler sonography and color-flow sonography. VESSELS IMAGED: External Iliac Vein (EIV) Common Femoral Vein Deep Femoral Vein Greater Saphenous Vein * Femoral Vein Popliteal Vein Small Saphenous Vein * Proximal Calf Veins (* superficial vessels) Right Leg: Appears negative for DVT No popliteal fossa lesion is seen. IMPRESSION: THIS EXAMINATION IS NEGATIVE FOR DVT WITHIN THE RIGHT LEG.
--- NOTE | 2016-11-23 17:46 | P.PN ---
Progress Note - Text DATE OF SERVICE: 11/23/2016 PRESENTING COMPLAINT: Knee pain HISTORY OF PRESENT ILLNESS: 66-year-old male status post right total knee arthroplasty. INTERVAL HISTORY: 11/23/2016: Lying in bed appears a bit more awake today states he slept better. No nausea or vomiting. Right knee sore, working with physical therapy. Tolerating his diet eating between 75% and 100% of his meals. Ambulatory with assistance. 11/22/2016: Lying in bed appears tired. States he really didn't sleep well at all last night only a couple of hours of sleep. No nausea no vomiting. Tolerating his diet eating about 75-100% of his meals. Continues to work with physical therapy , no BM yet. 11/21/2016: Sitting up in a recliner appears comfortable. Didn't sleep well feeling a little sleepy and tired today , no nausea no vomiting, Tolerating his diet eating 100 percent. Working with physical therapy, no BM yet. REVIEW OF SYSTEMS: Done for constitutional ,cardiovascular, GI, pulmonary with relevant findings as above. CURRENT MEDICATIONS Aspirin 325 mg by mouth twice a day, Dulcolax 10 mg rectal daily when necessary. Valium 2.5 mg by mouth every 8 hours. Benadryl 25 mg IV push every 6 hours when necessary, senna/docusate sodium 2 tabs by mouth at bedtime, temazepam 15 mg by mouth at bedtime, tramadol 50 mg by mouth every 6 hours. PHYSICAL EXAM VITAL SIGNS: Temperature 98.5, pulse 75, respirations 16, blood pressure 151/72, oxygen saturation 97% on room air. GENERAL APPEARANCE: Lying in the bed, appears comfortable. EYES: Pupils equal. Conjunctiva normal. NECK: JVD not raised. Mass not palpable. RESPIRATORY: Respiratory effort normal. Lungs clear to auscultation. CARDIOVASCULAR: First and second sounds normal. No edema. ABDOMEN: Soft. Liver and spleen not palpable. No tenderness. No mass palpable. PSYCHIATRY: Alert and oriented x3. Mood and affect normal. EXTREMITIES: Right knee covered with dry dressing. INVESTIGATIONS: White blood cell count 6.6, hemoglobin 11.5. ASSESSMENT: -Right total knee arthroplasty. -Leukocytosis, reactive likely from surgery. -Primary osteoarthritis multiple joints, including the left knee. -Colonic diverticulosis, chronic, asymptomatic. -Essential hypertension. -Nausea as a side effect pain medication, resolved -Sinus bradycardia, physiological. PLAN: Continue current medication treatment plan, patient stable for discharge from medical standpoint. Orthopedics to complete discharge today. KEYLINER statement: Patient was seen and examined by nurse practitioner Michelle Segundo and all elements of the case discussed with attending Dr. Valente
--- NOTE | 2016-11-24 21:08 | PN ---
PROGRESS NOTE DATE OF SERVICE: November 23, 2016. ATTENDING NOTE: This patient seen examined by me on 11/23/2016. I discussed with my nurse practitioner, Ms. Segundo. The patient doing better. Right knee pain has improved. Eating better. No chest pain. No shortness of breath. Lungs are clear. CARDIOVASCULAR: First and second sounds normal. Care was discussed with the patient. If discharged, should follow up with family doctor. MMODL / IJN: [id number] /
== END 2016-11-23 13:33 | disposition home health service (06) | DRG 470 ==
LOC: 2ORMAIN 10:29 → 3SUR 14:16
PROVIDERS: ADMIT Orthopaedic Surgery Sports Medicine; ATTEND Orthopaedic Surgery Sports Medicine
PROC: 0SRC0J9 Replacement of Right Knee Joint with Synthetic Substitute, Cemented, Open Approach (ICD-10-PCS; principal; 2016-11-20 12:00)
DX: M17.11 Unilateral primary osteoarthritis, right knee (principal); I10 Essential (primary) hypertension; M25.761 Osteophyte, right knee; R11.0 Nausea; Z96.641 Presence of right artificial hip joint; Z96.652 Presence of left artificial knee joint; K57.30 Diverticulosis of large intestine without perforation or abscess without bleeding; R00.1 Bradycardia, unspecified; T40.2X5A Adverse effect of other opioids, initial encounter; Z86.19 Personal history of other infectious and parasitic diseases; Z79.899 Other long term (current) drug therapy
CPT/HCPCS: 85025; 88300

== ENCOUNTER → 2017-10-08 | Outpatient (CLI) | payer MEDICARE, BC ==
--- NOTE | 2017-10-08 11:33 | US ---
EXAMINATION TYPE: US kidneys/renal and bladder DATE OF EXAM: 10/08/2017 COMPARISON: NONE CLINICAL HISTORY: R94.4 ABN RESULTS OF KIDNEYS. Abnormal labs, left back pain EXAM MEASUREMENTS: Right Kidney: 11.2 x 4.2 x 5.3 cm Left Kidney: 10.3 x 4.6 x 5.5 cm Right Kidney: No hydronephrosis or masses seen Left Kidney: No hydronephrosis or masses seen, dromedary hump seen Bladder: wnl, distended Bilateral Jets seen There is no evidence for hydronephrosis at this point in time. No nephrolithiasis is seen. No snow s are identified. The urinary bladder is anechoic. Bilateral ureteral jets are seen. IMPRESSION: No distinct abnormality appreciated.
== END | disposition home or self-care (01) ==
LOC: RADUSWWP 07:20
PROVIDERS: ATTEND Family Medicine
DX: R94.4 Abnormal results of kidney function studies (principal)
CPT/HCPCS: 76770

== ENCOUNTER 2018-01-09 04:58 | Observation (INO) | payer MEDICARE, BC ==
[2018-01-09] MEDS ORDERED: MORPHINE SULFATE 4 MG/ML SYRINGE IV STA (05:50)
[2018-01-09 05:52] LABS: Basophils # (A) 0.1 k/uL (0-0.2); Basophils % (A) 1 %; Eosinophils # (A) 0.2 k/uL (0-0.7); Eosinophils % (A) 2 %; HCT 45.3 % (39.0-53.0); HGB 15.5 gm/dL (13.0-17.5); Lymphocytes # (A) 1.1 k/uL (1.0-4.8); Lymphocytes % (A) 14 %; MCH 31.2 pg (25.0-35.0); MCHC 34.2 g/dL (31.0-37.0); MCV 91.4 fL (80.0-100.0); Mean Platelet Volume 7.1; Monocytes # (A) 0.6 k/uL (0-1.0); Monocytes % (A) 7 %; Neutrophils # (A) 5.8 k/uL (1.3-7.7); Neutrophils % (A) 75 %; Platelet Count 192 k/uL (150-450); RBC 4.95 m/uL (4.30-5.90); RDW 13.5 % (11.5-15.5); WBC 7.7 k/uL (3.8-10.6)
--- NOTE | 2018-01-09 05:53 | ED ---
Abdominal Pain HPI - General Chief Complaint: Abdominal Pain Stated Complaint: Abdominal Pain Time Seen by Provider: 01/09/18 05:00 Source: patient Mode of arrival: ambulatory Limitations: no limitations - History of Present Illness MD Complaint: abdominal pain Onset/Timin -: days(s) Location: LLQ Severity: moderate Quality: cramping, stabbing Consistency: colicky Improves With: nothing Worsens With: nothing Associated Symptoms: constipation - Related Data Home Medications Medication Instructions Recorded Confirmed HYDROcodone/APAP 5-325MG [Mars 1 - 2 tab PO Q6HR PRN 11/12/16 01/09/18 5-325] Losartan [Cozaar] 50 mg PO DAILY 11/12/16 01/09/18 Vit C/E/Zn/Coppr/Lutein/Zeaxan 1 cap PO DAILY 11/12/16 01/09/18 [Preservision Areds 2 Softgel] Previous Rx's Medication Instructions Recorded Cyclobenzaprine [Flexeril] 10 mg PO Q8H PRN #20 tablet 10/21/13 Aspirin 325 mg PO BID #60 tab 11/21/16 Docusate [Colace] 100 mg PO BID #60 capsule 11/21/16 HYDROcodone/APAP 10-325MG [Mars 1 tab PO Q4HR PRN #60 tab 11/21/16 10-325] Allergies Allergy/AdvReac Type Severity Reaction Status Date / Time No Known Allergies Allergy Verified 01/09/18 05:05 Review of Systems ROS Statement: Those systems with pertinent positive or pertinent negative responses have been documented in the HPI. ROS Other: All systems not noted in ROS Statement are negative. Constitutional: Denies: fever, chills Respiratory: Denies: cough, dyspnea Cardiovascular: Denies: chest pain, palpitations Gastrointestinal: Reports: abdominal pain, constipation. Denies: nausea, vomiting, diarrhea, melena, hematochezia Genitourinary: Denies: dysuria, hematuria Musculoskeletal: Denies: back pain Skin: Denies: rash Past Medical History Past Medical History: Hypertension, Skin Disorder Additional Past Medical History / Comment(s): HEPATITIS TEENAGER, RHEUMATIC FEVER AND HEART MURMUR CHILD. eccymosis History of Any Multi-Drug Resistant Organisms: None Reported Past Surgical History: Joint Replacement, Orthopedic Surgery Additional Past Surgical History / Comment(s): 4-5 ARTHROSCOPIC SURG. SUMMER KNEES , SUMMER ROT CUFF REPAIR, RT WRIST SURG, LT ELBOW SURG., SUMMER ACHILLES TENDON REPAIRS. RIGHT HIP REPLACEDMENT. Past Anesthesia/Blood Transfusion Reactions: No Reported Reaction Additional Past Anesthesia/Blood Transfusion Reaction / Comment(s): BP was low after last surg. Past Psychological History: No Psychological Hx Reported Smoking Status: Never smoker Past Alcohol Use History: None Reported Past Drug Use History: None Reported - Past Family History Mother Family Medical History: Cancer Additional Family Medical History / Comment(s): LUNG Father Family Medical History: Cancer Additional Family Medical History / Comment(s): BOWEL General Exam Limitations: no limitations General appearance: alert, in no apparent distress Head exam: Present: atraumatic, normocephalic Eye exam: Present: normal appearance. Absent: scleral icterus, conjunctival injection ENT exam: Present: normal oropharynx Neck exam: Present: normal inspection Respiratory exam: Present: normal lung sounds bilaterally. Absent: respiratory distress, wheezes, rales, rhonchi, stridor Cardiovascular Exam: Present: regular rate, normal rhythm, normal heart sounds. Absent: systolic murmur, diastolic murmur, rubs, gallop GI/Abdominal exam: Present: soft, tenderness (Left lower quadrant), hypoactive bowel sounds. Absent: distended, guarding, rebound, rigid, mass, pulsatile mass , hernia exam: Present: normal inspection, vertical testicular lie. Absent: scrotal swelling Extremities exam: Present: normal inspection, normal capillary refill. Absent: pedal edema, calf tenderness Back exam: Present: normal inspection. Absent: CVA tenderness (R), CVA tenderness (L) Neurological exam: Present: alert Skin exam: Present: warm, dry, intact, normal color. Absent: rash Course Vital Signs 01/09/18 01/09/18 05:01 06:02 Temperature 98.2 F Pulse Rate 58 L Respiratory 18 19 Rate Blood Pressure 165/80 O2 Sat by Pulse 97 Oximetry Medical Decision Making - Lab Data Result diagrams: 01/09/18 05:26 01/09/18 05:26 Lab Results 01/09/18 01/09/18 01/09/18 Range/Units 05:26 05:26 05:55 WBC 7.7 (3.8-10.6) k/uL RBC 4.95 (4.30-5.90) m/uL Hgb 15.5 (13.0-17.5) gm/dL Hct 45.3 (39.0-53.0) % MCV 91.4 (80.0-100.0) fL MCH 31.2 (25.0-35.0) pg MCHC 34.2 (31.0-37.0) g/dL RDW 13.5 (11.5-15.5) % Plt Count 192 (150-450) k/uL Neutrophils % 75 % Lymphocytes % 14 % Monocytes % 7 % Eosinophils % 2 % Basophils % 1 % Neutrophils # 5.8 (1.3-7.7) k/uL Lymphocytes # 1.1 (1.0-4.8) k/uL Monocytes # 0.6 (0-1.0) k/uL Eosinophils # 0.2 (0-0.7) k/uL Basophils # 0.1 (0-0.2) k/uL Sodium 139 (137-145) mmol/L Potassium 4.4 (3.5-5.1) mmol/L Chloride 107 (98-107) mmol/L Carbon Dioxide 24 (22-30) mmol/L Anion Gap 8 mmol/L BUN 13 (9-20) mg/dL Creatinine 1.21 (0.66-1.25) mg/dL Est GFR (CKD-EPI)AfAm 70 (>60 ml/min/1.73 sqM) Est GFR (CKD-EPI)NonAf 61 (>60 ml/min/1.73 sqM) Glucose 107 H (74-99) mg/dL Calcium 9.4 (8.4-10.2) mg/dL Total Bilirubin 0.7 (0.2-1.3) mg/dL AST 24 (17-59) U/L ALT 35 (21-72) U/L Alkaline Phosphatase 64 (38-126) U/L Total Protein 7.2 (6.3-8.2) g/dL Albumin 4.2 (3.5-5.0) g/dL Amylase 42 (30-110) U/L Lipase 90 (23-300) U/L Urine Color Light Yellow Urine Appearance Clear (Clear) Urine pH 5.5 (5.0-8.0) Ur Specific Ford 1.005 (1.001-1.035) Urine Protein Negative (Negative) Urine Glucose (UA) Negative (Negative) Urine Ketones Negative (Negative) Urine Blood Negative (Negative) Urine Nitrite Negative (Negative) Urine Bilirubin Negative (Negative) Urine Urobilinogen <2.0 (<2.0) mg/dL Ur Leukocyte Esterase Negative (Negative) Disposition Clinical Impression: Diverticulitis Disposition: ADMITTED IP TO THIS HOSP Condition: Fair Is patient prescribed a controlled substance at d/c from ED?: No Referrals: Sina Bustos DO [Primary Care Provider] - 1-2 days
[2018-01-09 06:00] LABS: Albumin 4.2 g/dL (3.5-5.0); Calcium 9.4 mg/dL (8.4-10.2); Potassium 4.4 mmol/L (3.5-5.1); Total Bilirubin 0.7 mg/dL (0.2-1.3); Total Protein 7.2 g/dL (6.3-8.2)
[2018-01-09 06:09] LABS: Appearance,Urine Clear (Clear); Bilirubin,Urine Negative (Negative); Blood,Urine Negative (Negative); Color,Urine Light Yellow; Glucose,Urine (UA) Negative (Negative); Ketones,Urine Negative (Negative); Leukocyte Esterase,Urine Negative (Negative); Nitrite,Urine Negative (Negative); PH, Urine 5.5 (5.0-8.0); Protein,Urine Negative (Negative); Specific Gravity,Urine 1.005 (1.001-1.035); Urobilinogen,Urine <2.0 mg/dL (<2.0)
--- NOTE | 2018-01-09 06:55 | XR ---
EXAM: XR Abdomen, 1 View CLINICAL HISTORY: ITS.REASON XR Reason: abdominal pain TECHNIQUE: Frontal supine view of the abdomen/pelvis. COMPARISON: No relevant prior studies available. FINDINGS: Gastrointestinal tract: Unremarkable. No dilation. Bones/joints: Unremarkable. IMPRESSION: Normal abdominal x-ray.
--- NOTE | 2018-01-09 07:17 | CT ---
EXAMINATION TYPE: CT abdomen pelvis wo con DATE OF EXAM: 01/09/2018 COMPARISON: Previous study dated 08/13/2011 HISTORY: LQ pain. Hx diverticulitis, renal stones CT DLP: 736.4 mGycm Automated exposure control for dose reduction was used. FINDINGS: Visualized portions of the lungs are clear. There is no pleural or pericardial fluid. The h eart is mildly enlarged. Within the abdomen, the liver, spleen and gallbladder appear unremarkable. Both adrenal glands appear normal. There is no evidence of nephrolithiasis or hydronephrosis. Limited views of the pancreas are normal. There is mild/moderate atheromatous calcification of the visualized arterial tree. There is no significant retroperitoneal, iliac or inguinal adenopathy. There has been interval placement of a right hip arthroplasty. This is causing streak artifact in the pelvis. The bladder is unremarkable. There are scattered diverticula in the left side of the colon. There is minimal stranding in the fat surrounding the junction of the sigmoid colon with the descending colon. The appendix is normal. Small bowel loops are normal in caliber. There is no free fluid and no free air. There is a 1.7 cm periumbilical mass. This has enlarged from the previous study. There is degenerative disc disease, facet arthropathy and hypertrophic spondylosis within the spine. IMPRESSION: 1. EVIDENCE OF MILD, ACUTE DIVERTICULITIS INVOLVING THE JUNCTION OF THE DESCENDING COLON WITH THE SIG MOID COLON BUT WITHOUT EVIDENCE OF PERFORATION OR ABSCESS FORMATION. 2. MILD CARDIOMEGALY. 3. DEGENERATIVE CHANGES WITHIN THE SPINE. 4. 1.7 CM PERIUMBILICAL SUBCUTANEOUS MASS. THIS MAY REPRESENT AN ENLARGING SEBACEOUS CYST. OTHER SOFT TISSUE TUMOR IS NOT EXCLUDED.
[2018-01-09] MEDS ORDERED: NALOXONE 0.4 MG/ML 1 ML VIAL IV PRN (07:32)
[2018-01-09] MEDS ORDERED: ACETAMINOPHEN TAB 325 MG TAB PO PRN (07:32)
[2018-01-09] MEDS ORDERED: LEVOFLOXACIN 750MG-D5W PMX 750 MG in DEXTROSE/WATER 1 150ML.BAG IVPB STA (07:34)
[2018-01-09] MEDS ORDERED: metroNIDAZOLE-NS PMX 500 MG in SALINE 1 100ML.BAG IVPB STA (07:34)
[2018-01-09] MEDS: MORPHINE SULFATE 4 MG/ML SYRINGE IV PRN ×4 (07:35→18:12)
[2018-01-09] MEDS ORDERED: CYCLOBENZAPRINE 10 MG TAB PO PRN (07:36)
[2018-01-09] MEDS ORDERED: SODIUM CHLORIDE 0.9% 1,000 ML IV SCH (07:45)
[2018-01-09] MEDS: DOCUSATE 100 MG CAP PO SCH ×2 (10:32→20:45)
[2018-01-09] MEDS: FAMOTIDINE 20 MG TAB PO SCH ×2 (10:33→20:45)
[2018-01-09] MEDS: LOSARTAN 50 MG TAB PO SCH (10:33)
[2018-01-09] MEDS: ASPIRIN 325 MG TAB PO SCH ×2 (10:34→20:45)
[2018-01-09] MEDS: HYDROcodone/APAP 10-325MG 1 EACH TAB PO PRN (11:51)
[2018-01-09] MEDS: ONDANSETRON 4 MG/2 ML VIAL IVP PRN ×2 (15:53→23:28)
[2018-01-09] MEDS: metroNIDAZOLE-NS PMX 500 MG in SALINE 1 100ML.BAG IVPB SCH ×2 (15:53→23:28)
[2018-01-09] MEDS: LACTATED RINGERS 1,000 ML IV SCH (19:49)
--- NOTE | 2018-01-09 22:08 | HP ---
HISTORY AND PHYSICAL DATE OF ADMISSION: January 09, 2018 DATE OF SERVICE: 01/09/2018. PRESENTING COMPLAINT: Abdominal pain. HISTORY OF PRESENTING COMPLAINT: This is a very pleasant 67-year-old patient off Dr. Bustos. Chronic stable medical conditions include hypertension, osteoarthritis, muscle spasms. The patient had a few episodes of diverticulitis previously. The patient 10 days ago felt he was having a diverticulitis episode again. Pain in lower abdominal, came on and subsided, but the patient felt queasy off and on for last 1 week. Yesterday evening and towards the night, the patient's pain became much more severe. The patient started having chills and a lot of nausea and decided to present to the ER. CT scan of the abdomen and pelvis was done in the ER that showed stranding of fat around the junction of sigmoid colon and descending colon. There is no obvious abscess noted. The patient put on IV antibiotics, clear liquids. Admitted for the same. The patient has followed up with Dr. Davila in the past. Nausea is somewhat improved since then. REVIEW OF SYSTEMS: CONSTITUTIONAL: Chills. HEENT: None. RESPIRATORY: None. CARDIOVASCULAR: None. GASTROINTESTINAL: As above. GENITOURINARY: None. MUSCULOSKELETAL: Pain and spasms in the joints, muscles. HEMATOLOGICAL: none. PSYCHIATRY: None. NEUROLOGICAL: None. PAST MEDICAL HISTORY: Hypertension, hepatitis as a teenager, rheumatic fever, murmur, osteoarthritis, muscle spasms. PAST SURGICAL HISTORY: Joint replacement, arthroscopic surgery bilateral knees, bilateral rotator cuff repair, right wrist surgery, left elbow surgery, bilateral Achilles tendon repairs, right hip replacement. SOCIAL HISTORY: Does not smoke or drink alcohol. . 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 FAMILY HISTORY: Lung cancer. HOME MEDICATIONS: 1. PreserVision 1 capsule p.o. daily. 2. Senokot 8.6 mg p.o. daily. 3. Multivitamin 1 tablet p.o. daily. 4. Cozaar 50 mg p.o. daily. 5. Motrin 600 mg p.o. daily. 6. Flexeril 10 mg p.o. q.8h p.r.n. ALLERGIES: None. PHYSICAL EXAMINATION: VITAL SIGNS: Vital signs on presentation: Temperature 98.2, pulse 83, respiratory 18, blood pressure 165/80, pulse ox 97% on room air. GENERAL APPEARANCE: Average built, BMI 30. Sitting up awake. EYES: Pupils equal. Conjunctivae normal. HEENT: External appearance of nose and ears normal. Oral cavity normal. NECK: JVD not raised. Mass not palpable. RESPIRATORY: Effort normal. LUNGS are clear. CARDIOVASCULAR: 1st and 2nd sounds normal. No edema. ABDOMEN: Lower abdominal tenderness on the left side. No guarding or rigidity. Liver and spleen not palpable. LYMPHATICS: No lymph nodes palpable in the neck and axilla. PSYCHIATRY: Alert and oriented x3. Mood and affect normal. NEUROLOGICAL: Pupils equal. Cranial nerves grossly intact. Power and sensation grossly intact. INVESTIGATIONS: White count 7.7, hemoglobin 15.5, potassium 4.4. BUN and creatinine is normal. UA negative. CT scan of the abdomen shows left colonic diverticulitis around the sigmoid colon. ASSESSMENT: 1. Acute episode of diverticulitis and the patient has had more episodes in the past with no clinical signs of abscess at the present time. 2. Essential hypertension. 3. Primary osteoarthritis. 4. Muscle spasms. PLAN: The patient is started on IV antibiotics. Clear liquids. Lovenox for DVT prophylaxis. We will also add IV fluids. Care was discussed with the patient. We will keep the patient on clear liquids for right now. The patient may need surgical evaluation intervention down the road. Care was discussed with the patient. His brother and son are present in the room. Copy to Dr. Bustos. FITO / TYRESE: [id number] /
[2018-01-10] MEDS: LACTATED RINGERS 1,000 ML IV SCH ×3 (02:27→15:54)
[2018-01-10] MEDS: ASPIRIN 325 MG TAB PO SCH ×2 (07:43→20:04)
[2018-01-10] MEDS: DOCUSATE 100 MG CAP PO SCH ×2 (07:43→20:04)
[2018-01-10] MEDS: FAMOTIDINE 20 MG TAB PO SCH ×2 (07:43→20:04)
[2018-01-10] MEDS: metroNIDAZOLE-NS PMX 500 MG in SALINE 1 100ML.BAG IVPB SCH ×2 (07:43→15:43)
[2018-01-10] MEDS: LOSARTAN 50 MG TAB PO SCH (07:45)
[2018-01-10 08:04] LABS: Basophils % (A) 1 %; Eosinophils # (A) 0.2 k/uL (0-0.7); Eosinophils % (A) 3 %; HCT 42.8 % (39.0-53.0); HGB 14.5 gm/dL (13.0-17.5); Lymphocytes % (A) 20 %; MCH 31.6 pg (25.0-35.0); MCHC 33.9 g/dL (31.0-37.0); MCV 93.3 fL (80.0-100.0); Mean Platelet Volume 7.7; Monocytes # (A) 0.4 k/uL (0-1.0); Monocytes % (A) 9 %; Neutrophils # (A) 3.3 k/uL (1.3-7.7); Neutrophils % (A) 66 %; Platelet Count 156 k/uL (150-450); RBC 4.59 m/uL (4.30-5.90); RDW 13.4 % (11.5-15.5)
[2018-01-10 08:19] LABS: Calcium 9.2 mg/dL (8.4-10.2); Potassium 4.6 mmol/L (3.5-5.1)
[2018-01-10] MEDS: LEVOFLOXACIN 750MG-D5W PMX 750 MG in DEXTROSE/WATER 1 150ML.BAG IVPB SCH (09:00)
[2018-01-10] MEDS: ONDANSETRON 4 MG/2 ML VIAL IVP PRN ×2 (09:04→15:44)
[2018-01-10] MEDS: HYDROcodone/APAP 10-325MG 1 EACH TAB PO PRN (10:54)
--- NOTE | 2018-01-10 13:27 | CONS ---
CONSULTATION DATE OF SERVICE: 01/10/2018. REASON FOR CONSULTATION: Acute sigmoid diverticulitis. HISTORY OF PRESENT ILLNESS: The patient is a 67-year-old pleasant white male was admitted to hospital with left lower quadrant abdominal pain for the last 3 to 4 days duration. The pain continued to progressively get worse and yesterday it became so intense he came into the emergency room. He had a CT of the abdomen and pelvis done that showed changes consistent with acute sigmoid diverticulitis. He was started on IV Levaquin and Flagyl and this morning he is feeling better. The patient had at least 3 documented episodes of acute sigmoid diverticulitis in the last 3 or 4 years duration. His last colonoscopy was about 4 years ago. PAST MEDICAL HISTORY: Significant for hypertension, rheumatic fever and degenerative joint disease. PAST SURGICAL HISTORY: Bilateral knee arthroscopies, shoulder repair, right hip replacement, colonoscopy about 4 years ago. MEDICATIONS: At home include Senokot, multivitamin, Cozaar, Motrin, Flexeril. ALLERGIES: None. SOCIAL HISTORY: No smoking. No alcohol use. FAMILY HISTORY: Dad had lung cancer. REVIEW OF SYSTEMS: CARDIOPULMONARY: No chest pain, shortness of breath. GENITOURINARY: No dysuria or hematuria. MUSCULOSKELETAL: Unremarkable. SKIN: Unremarkable. ENDOCRINE: Unremarkable. PSYCHIATRY: Unremarkable. NEUROLOGY: Unremarkable. ENT: Vision and hearing unremarkable. CONSTITUTIONAL: No recent weight loss. PHYSICAL EXAMINATION: He appears comfortable. No apparent distress. Vital signs stable. Blood pressure is 144/74, pulse rate of 51, temperature 97.2. HEENT: Examination unremarkable. Conjunctivae pink. Sclerae anicteric. Oral cavity no lesions. NECK: No JVD. No lymph node enlargement. CHEST: Clear to auscultation. HEART: Regular rate and rhythm. ABDOMEN: Soft. There was mild tenderness in the left lower quadrant area. EXTREMITIES: No pedal edema. SKIN: No rashes. NEUROLOGIC: Alert and oriented x3. No focal deficits. DIAGNOSTIC DATA: Labs from today, WBC 5. Labs from yesterday, 7.7, hemoglobin 15.5, platelets are normal. Basic metabolic panel is within normal limits. Labs from today are also within normal limits. IMPRESSION: Acute sigmoid diverticulitis, this being the 4th episode in the last 3 years. Presently on IV Levaquin and Flagyl and symptoms are gradually improving. Last colonoscopy was approximately 4 years ago. RECOMMENDATIONS: 1. Advance to a full liquid diet. 2. Continue with broad-spectrum antibiotics. 3. If her symptoms improve, she can be discharged home tomorrow with outpatient follow up in 2 weeks. Thank you for this consultation. FITO / TYRESE: [id number] /
[2018-01-10] MEDS ORDERED: METOCLOPRAMIDE 5 MG/ML 2 ML VIAL IVP PRN (16:26)
--- NOTE | 2018-01-10 21:12 | PN ---
PROGRESS NOTE DATE OF SERVICE: 01/10/18. PRESENTING COMPLAINT: Abdominal pain. INTERVAL HISTORY: This patient presented with acute diverticulitis. Abdominal pain is somewhat better, less nausea. Did tolerate a clear liquid diet. Up and about. is present today. REVIEW OF SYSTEMS: Done for constitutional, cardiovascular, GI, pulmonary; relevant findings above. CURRENT MEDICATIONS: Reviewed that include IV Levaquin and Flagyl. EXAMINATION: Afebrile, pulse 51, respiration 16, blood pressure 120/72, pulse ox 97% on room air. GENERAL APPEARANCE: Sitting up, awake. EYES: Pupils equal. Conjunctivae normal. HEENT: External appearance of nose and ears normal. Oral cavity normal. NECK: JVD not raised. Mass not palpable. RESPIRATORY: Effort, lungs are clear. CARDIOVASCULAR: 1st and 2nd sounds normal. No edema. ABDOMEN: Left lower quadrant tenderness. No guarding or rigidity. Liver and spleen not palpable. PSYCHIATRY: Alert and oriented x3. Mood and affect normal. INVESTIGATIONS: White count 5, hemoglobin 14.5. ASSESSMENT: 1. Acute recurrent sigmoid diverticulitis with clinical improvement. 2. Essential hypertension. 3. Primary osteoarthritis. 4. Muscle spasms. PLAN: Continue antibiotics. Diet will be advanced to full liquids today. Surgery will be consulted for possible further intervention down the road. Hoping patient maybe could probably go home tomorrow. Care was discussed the patient and . Clinically patient is doing better. MMODL / IJN: [id number] /
[2018-01-11] MEDS: metroNIDAZOLE-NS PMX 500 MG in SALINE 1 100ML.BAG IVPB SCH ×2 (00:17→08:02)
[2018-01-11] MEDS: LACTATED RINGERS 1,000 ML IV SCH ×2 (06:00→11:02)
[2018-01-11] MEDS: FAMOTIDINE 20 MG TAB PO SCH (08:02)
[2018-01-11] MEDS: DOCUSATE 100 MG CAP PO SCH (08:02)
[2018-01-11] MEDS: ASPIRIN 325 MG TAB PO SCH (08:02)
[2018-01-11] MEDS: LOSARTAN 50 MG TAB PO SCH (08:02)
[2018-01-11 08:46] LABS: Calcium 9.2 mg/dL (8.4-10.2); Potassium 4.3 mmol/L (3.5-5.1)
[2018-01-11] MEDS: LEVOFLOXACIN 750MG-D5W PMX 750 MG in DEXTROSE/WATER 1 150ML.BAG IVPB SCH (09:35)
--- NOTE | 2018-01-11 09:39 | P.PN ---
Subjective Progress Note Date: 01/11/18 Principal diagnosis: Abdominal pain colonic diverticulitis 67-year-old male admitted with left lower quadrant abdominal pain acute colonic diverticulitis. Yesterday he reports multiple emesis blood-tinged with nausea. Denies hematochezia or melena. Abdominal pain improving. Afebrile. CBC pending. Electrolytes within normal limits. Receiving twice daily full strength aspirin. Objective - Vital Signs Vital signs: Vital Signs Temp 97.1 F L 01/11/18 07:00 Pulse 55 L 01/11/18 07:00 Resp 20 01/11/18 07:00 BP 146/73 01/11/18 07:00 Pulse Ox 95 01/11/18 07:00 Intake & Output 01/10/18 01/11/18 01/11/18 18:59 06:59 18:59 Intake Total 1200 300 Output Total 400 Balance 800 300 Intake: Oral 1200 300 Output: Emesis 400 Other: # Voids 1 2 - Exam General appearance: The patient is alert, oriented, in no acute distress. HET: Head is normocephalic and atraumatic. Pupils are equal and reactive. Oropharynx is clear without lesions. Neck: Supple without lymphadenopathy. Trachea midline. Heart: S1 S2. Regular rate and rhythm. Lungs: No crackles or wheezes are heard. Abdomen: Soft, mild left lower quadrant tenderness, nondistended with bowel sounds. No peritoneal signs. No palpable organomegaly or masses. Extremities: Normal skin color and turgor. No cyanosis, rash, ulceration, clubbing, or edema. Radial and pedal pulses are 2/4 bilaterally. Neurological: No focal deficits. Strength and sensation are grossly intact. - Labs CBC & Chem 7: 01/10/18 07:36 01/11/18 08:07 Assessment and Plan (1) Abdominal pain Narrative/Plan: Acute left lower quadrant abdominal pain secondary to acute sigmoid diverticulitis with clinical improvement. Current Visit: Yes Status: Acute Code(s): R10.9 - UNSPECIFIED ABDOMINAL PAIN SNOMED Code(s): 02852582 (2) Diverticulitis Current Visit: Yes Status: Acute Code(s): K57.92 - DVTRCLI OF INTEST, PART UNSP, W/O PERF OR ABSCESS W/O BLEED SNOMED Code(s): 838243329 (3) Nausea & vomiting Narrative/Plan: Acute nausea vomiting described as minimally blood tinged possible gastritis esophagitis possible Rachele-Murry exacerbated by twice daily full dose aspirin. Current Visit: Yes Status: Acute Code(s): R11.2 - NAUSEA WITH VOMITING, UNSPECIFIED SNOMED Code(s): 64806532 Plan: 1. Slow advancement of diet. Protonix 40 mg twice daily. Senokot-S 2 tablets twice daily hold for diarrhea. Outpatient colonoscopy 4-6 weeks. Agreeable for discharge of CBC is stable. Assessment and plan a care discussed with Dr. Jordan
[2018-01-11] MEDS ORDERED: PANTOPRAZOLE 40 MG/10 ML VIAL IVP SCH (09:45)
[2018-01-11] MEDS ORDERED: SENNOSIDES-DOCUSATE SODIUM 1 EACH TAB PO SCH (09:45)
[2018-01-11 14:29] LABS: Basophils % (A) 1 %; Eosinophils # (A) 0.1 k/uL (0-0.7); Eosinophils % (A) 2 %; HCT 43.1 % (39.0-53.0); HGB 14.7 gm/dL (13.0-17.5); Lymphocytes # (A) 0.8 k/uL (1.0-4.8); Lymphocytes % (A) 13 %; MCH 31.9 pg (25.0-35.0); Mean Platelet Volume 7.6; Monocytes # (A) 0.4 k/uL (0-1.0); Monocytes % (A) 6 %; Neutrophils # (A) 4.7 k/uL (1.3-7.7); Neutrophils % (A) 77 %; Platelet Count 138 k/uL (150-450); RBC 4.59 m/uL (4.30-5.90); RDW 13.3 % (11.5-15.5); WBC 6.1 k/uL (3.8-10.6)
--- NOTE | 2018-01-11 14:44 | P.GSCN ---
History of Present Illness Consult date: 01/11/18 Reason for Consult: Diverticulitis History of present illness: 67-year-old male with a history of previous diverticulitis. Comes in the hospital with complaints of left lower quadrant abdominal pain. He states he has had episodes that have increased in frequency. He states this was the first time he was ever admitted and had a CAT scan performed. Looking back at the hospital chart I found a CAT scan from 2011. Reviewing that CAT scan report suggests sigmoid diverticulitis at that time however reviewing the films it appears that the area of inflammatory change was most evident at the splenic flexure. Last colonoscopy 4-5 years ago. Denies rectal bleeding or melena. Less frequent stools and smaller caliber stools. Upon this admission the patient had a repeat CAT scan performed. Mild inflammatory changes in the proximal sigmoid colon seen on this study. He does feel better although still somewhat nauseous. He is afebrile. He was having fevers at home. He apparently has seen GI in the past for his diverticulitis. 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 eccymosis History of Any Multi-Drug Resistant Organisms: None Reported Past Surgical History: Joint Replacement, Orthopedic Surgery Additional Past Surgical History / Comment(s): 4-5 ARTHROSCOPIC SURG. SUMMER KNEES , SUMMER ROT CUFF REPAIR, RT WRIST SURG, LT ELBOW SURG., SUMMER ACHILLES TENDON REPAIRS. RIGHT HIP REPLACEDMENT. Past Anesthesia/Blood Transfusion Reactions: No Reported Reaction Additional Past Anesthesia/Blood Transfusion Reaction / Comm: BP was low after last surg. Past Psychological History: No Psychological Hx Reported Smoking Status: Never smoker Past Alcohol Use History: None Reported Past Drug Use History: None Reported - Past Family History Mother Family Medical History: Cancer Additional Family Medical History / Comment(s): LUNG Father Family Medical History: Cancer Additional Family Medical History / Comment(s): BOWEL Medications and Allergies Home Medications Medication Instructions Recorded Confirmed Type Cyclobenzaprine [Flexeril] 10 mg PO Q8H PRN #20 tablet 10/21/13 01/09/18 Rx Losartan [Cozaar] 50 mg PO DAILY 11/12/16 01/09/18 History Vit C/E/Zn/Coppr/Lutein/Zeaxan 1 cap PO DAILY 11/12/16 01/09/18 History [Preservision Areds 2 Softgel] Ibuprofen [Motrin Ib] 600 mg PO DAILY 01/09/18 01/09/18 History Multivitamins, Thera [Multivitamin 1 tab PO DAILY 01/09/18 01/09/18 History (formulary)] Sennosides-Docusate Sodium 2 tab PO BID #120 tablet 01/11/18 Rx [Senokot-S] Allergies Allergy/AdvReac Type Severity Reaction Status Date / Time No Known Allergies Allergy Verified 01/09/18 11:45 Surgical - Exam Vital Signs Temp Pulse Resp BP Pulse Ox 98.2 F 58 L 18 165/80 97 01/09/18 05:01 01/09/18 05:01 01/09/18 05:01 01/09/18 05:01 01/09/18 05:01 Physical exam: General: Well-developed, well-nourished HEENT: Normocephalic, sclerae nonicteric Abdomen: Left lower quadrant tenderness, nondistended Extremities: No edema Neuro: Alert and oriented Results - Labs 01/11/18 08:07 01/11/18 08:07 Abnormal Lab Results - Last 24 Hours (Table) 01/11/18 Range/Units 08:07 Plt Count 138 L (150-450) k/uL Lymphocytes # 0.8 L (1.0-4.8) k/uL Diabetes panel 01/11/18 Range/Units 08:07 Sodium 139 (137-145) mmol/L Potassium 4.3 (3.5-5.1) mmol/L Chloride 106 (98-107) mmol/L Carbon Dioxide 27 (22-30) mmol/L BUN 12 (9-20) mg/dL Creatinine 1.25 (0.66-1.25) mg/dL Glucose 98 (74-99) mg/dL Calcium 9.2 (8.4-10.2) mg/dL Calcium panel 01/11/18 Range/Units 08:07 Calcium 9.2 (8.4-10.2) mg/dL Pituitary panel 01/11/18 Range/Units 08:07 Sodium 139 (137-145) mmol/L Potassium 4.3 (3.5-5.1) mmol/L Chloride 106 (98-107) mmol/L Carbon Dioxide 27 (22-30) mmol/L BUN 12 (9-20) mg/dL Creatinine 1.25 (0.66-1.25) mg/dL Glucose 98 (74-99) mg/dL Calcium 9.2 (8.4-10.2) mg/dL Adrenal panel 01/11/18 Range/Units 08:07 Sodium 139 (137-145) mmol/L Potassium 4.3 (3.5-5.1) mmol/L Chloride 106 (98-107) mmol/L Carbon Dioxide 27 (22-30) mmol/L BUN 12 (9-20) mg/dL Creatinine 1.25 (0.66-1.25) mg/dL Glucose 98 (74-99) mg/dL Calcium 9.2 (8.4-10.2) mg/dL Assessment and Plan (1) Diverticulitis Narrative/Plan: Patient with recurrent episodes of diverticulitis. Current episode seems to be involving the junction between the descending colon and sigmoid colon. Continue IV antibiotics. Recommend colonoscopy in 6-8 weeks. We'll see this patient as an outpatient to further discuss possible elective resection. Current Visit: Yes Status: Acute Code(s): K57.92 - DVTRCLI OF INTEST, PART UNSP, W/O PERF OR ABSCESS W/O BLEED SNOMED Code(s): 294404108
[2018-01-11 15:20] VITALS: BP 148/76; PULSE 57; RESP 18; TEMP 98
--- NOTE | 2018-01-12 00:03 | DS ---
DISCHARGE SUMMARY DATE OF ADMISSION: January 09, 2018. DATE OF DISCHARGE: January 11, 2018. FINAL DIAGNOSES: 1. Acute recurrent sigmoid diverticulitis with clinical improvement. 2. Essential hypertension. 3. Primary osteoarthritis. 4. Chronic muscle spasms. HOSPITAL COURSE: This patient has had at least 3-4 episodes of diverticulitis before, presented yet again with episode of left lower abdominal pain going for over a week confirmed to be acute diverticulitis on CT scan. There was no abscess. The patient was afebrile all along and white count was normal. Clinically feeling much better. The patient is seen by Dr. Larissa Davila from Gastroenterology and also Dr. Carson from General surgery. Overall feeling better. Care was discussed with the patient and in detail. Questions were answered. PHYSICAL EXAMINATION: Temperature 98, pulse 57, respiratory 18, blood pressure 140/76, pulse ox 97% on room air. ABDOMEN: Soft. Minimal left lower quadrant tenderness. INVESTIGATION: White count 6.1. DISCHARGE MEDICATIONS: 1. Flexeril 10 mg q.8h p.r.n. 2. Cozaar 50 mg p.o. daily. 3. PreserVision 1 capsule p.o. daily. 4. Motrin 600 mg p.o. daily p.r.n. 5. Multivitamin tablet p.o. daily. 6. Tylenol 650 mg q.6h p.r.n. 7. Augmentin 875 1 tablet p.o. q.12 20 tablets. 8. Reglan 10 mg q.8h p.r.n., 20 tablets. 9. Senokot-S 2 tab p.o. b.i.d. FOLLOW UP: Dr. Carson on 01/21/2018. Follow up with Dr. Bustos in 3 days. Follow up with Dr. Larissa Davila on 02/08/2018. Diet: Soft, bland. Discussion and discharge planning more than [address] Bustos. MMJOLIEL / IJN: [id number] /
== END 2018-01-11 16:47 | disposition home or self-care (01) ==
LOC: EC 04:58 → 4MS4W 07:32
PROVIDERS: ADMIT Hospitalist; ATTEND Hospitalist
DX: K57.32 Diverticulitis of large intestine without perforation or abscess without bleeding (principal); I10 Essential (primary) hypertension; M19.91 Primary osteoarthritis, unspecified site; M62.838 Other muscle spasm; Z79.899 Other long term (current) drug therapy; Z79.82 Long term (current) use of aspirin; Z80.1 Family history of malignant neoplasm of trachea, bronchus and lung; Z80.0 Family history of malignant neoplasm of digestive organs; Z86.19 Personal history of other infectious and parasitic diseases
CPT/HCPCS: 99285; 96365 ×2; 96368 ×2; 96375 ×4; 96376 ×6; 96361 ×2; 96366 ×2; 96367; 36415; 80053; 80048 ×2; 82150; 83690; 85025 ×3; 81003; 74018; 74176; G0378 ×3; J2270; J2765; J2405 ×2; J1956 ×3; C9113

== ENCOUNTER → 2018-03-11 | Outpatient (CLI) | payer MEDICARE, BC ==
--- NOTE | 2018-03-12 05:15 | CT ---
EXAMINATION TYPE: CT abdomen pelvis w con DATE OF EXAM: 03/11/2018 COMPARISON: 01/09/2018 HISTORY: 67-year-old male with abdominal pain, diverticulitis TECHNIQUE: Contiguous axial scanning of the abdomen and pelvis following administration of 100 ml Iso yvon 300 IV contrast. Delayed images through the kidneys and coronal/sagittal reconstructions perform ed. CT DLP: 1649 mGycm Automated exposure control for dose reduction was used. FINDINGS: Heart normal size without pericardial effusion. Mild dependent atelectasis visualized lung bases. Suggestion of a tiny hiatal hernia. No focal liver lesion or biliary ductal dilatation. Portal venous system is patent. Gallbladder, adrenal glands, kidneys, and pancreas appear within normal limits. A couple of subcentimeter hypodensities superior aspect of the spleen nonspecific, too small for accu rate CT characterization, probable tiny cysts or hemangiomas. These are unchanged from the comparison exam. Small fatty umbilical hernia redemonstrated with a small amount of entrapped fluid measuring 1.5 cm v ersus 1.8 cm, previously. Moderate atelectatic changes within the abdominal aorta without aneurysm. Scattered nonenlarged mesenteric lymph nodes. No dilated small bowel, free fluid, or free air otherwi se seen. Left hemicolon diverticulosis with prominent pericolonic vessels along the sigmoid colon. The previou sly seen focal inflammatory change at the junction of the descending and sigmoid colon has resolved. No new inflammation seen. Normal appendix. Bladder is urine distended. Prostate gland measures 4.5 cm wide with some central calcifications. No abnormal fluid collection the pelvis or pelvic lymphadenopathy. Bones: Right hip total arthroplasty. Moderate degenerative change at the left hip. Degenerative johansen es at the right SI joint. Degenerative changes throughout the visualized lower thoracic and lumbar sp ine. IMPRESSION: 1. LEFT-SIDED COLONIC DIVERTICULOSIS WITH RESOLUTION OF THE PREVIOUS EPISODE OF ACUTE DIVERTICULITIS. NO RESIDUAL ABSCESS. 2. REDEMONSTRATED SMALL FATTY UMBILICAL HERNIA CONTAINING A SMALL AMOUNT OF ENTRAPPED FLUID. THIS FLU ID CURRENTLY MEASURES 1.5 CM VERSUS 1.8 CM, PREVIOUSLY.
== END ==
LOC: RADCTMAIN 13:47
PROVIDERS: ATTEND Surgery
DX: K57.30 Diverticulosis of large intestine without perforation or abscess without bleeding (principal); K42.9 Umbilical hernia without obstruction or gangrene
CPT/HCPCS: 82565; 84520; 74177; 36415; Q9967

== ENCOUNTER 2018-03-24 07:47 | Day surgery (SDC) | payer MEDICARE, BC ==
[~2018-03-24 07:47] MED LIST changes: -ACETAMINOPHEN TAB 500 MG TAB PO ONE; -DEXAMETHASONE SOD PHOSPHATE 10 MG/ML 1 ML VIAL IV ONE; +LACTATED RINGERS 1,000 ML IV SCH; -MELOXICAM 7.5 MG TAB PO ONE; -MIDAZOLAM 2 MG/2 ML VIAL IV PRN; -ONDANSETRON 4 MG/2 ML VIAL IVP ONE; -ONDANSETRON 4 MG/2 ML VIAL IVP PRN; -SCOPOLAMINE 1.5MG/72HR PATCH TRANSDERM ONE; -TRANEXAMIC ACID 1,000 MG in SODIUM CHLORIDE 0.9% 100 ML IVPB ONE; -ceFAZolin 2 GM in SODIUM CHLORIDE 0.9% 100 ML IVPB ONE
[2018-03-24 08:02] VITALS: RESP 18; TEMP 98
[2018-03-24] MEDS ORDERED: LACTATED RINGERS 1,000 ML IV ONE (08:02)
[2018-03-24] MEDS ORDERED: LIDOCAINE 1% 20 ML VIAL (10MG/ML) FOR IV START INTRADERMA ONE (08:03)
[2018-03-24] MEDS ORDERED: PROPOFOL 10 MG/ML 20 ML VIAL IV ONE (09:11)
--- NOTE | 2018-03-24 09:13 | P.GSHP ---
History of Present Illness H&P Date: 03/24/18 Chief Complaint: Colon cancer screening Patient here today for colonoscopy. Patient has had recent change in bowel habits. He has had recent episodes of diverticulitis. Last colonoscopy 4-5 years ago. No rectal bleeding or melena. 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 eccymosis History of Any Multi-Drug Resistant Organisms: None Reported Past Surgical History: Joint Replacement, Orthopedic Surgery Additional Past Surgical History / Comment(s): 4-5 ARTHROSCOPIC SURG. SUMMER KNEES , SUMMER ROT CUFF REPAIR, RT WRIST SURG, LT ELBOW SURG., SUMMER ACHILLES TENDON REPAIRS. RIGHT HIP REPLACEDMENT. Past Anesthesia/Blood Transfusion Reactions: No Reported Reaction Additional Past Anesthesia/Blood Transfusion Reaction / Comment(s): BP was low after last surg. Past Psychological History: No Psychological Hx Reported Smoking Status: Never smoker Past Alcohol Use History: None Reported Past Drug Use History: None Reported - Past Family History Mother Family Medical History: Cancer Additional Family Medical History / Comment(s): LUNG Father Family Medical History: Cancer Additional Family Medical History / Comment(s): BOWEL Medications and Allergies Home Medications Medication Instructions Recorded Confirmed Type Losartan [Cozaar] 50 mg PO QAM 11/12/16 03/19/18 History Vit C/E/Zn/Coppr/Lutein/Zeaxan 1 cap PO DAILY 11/12/16 03/19/18 History [Preservision Areds 2 Softgel] Ibuprofen [Motrin Ib] 600 mg PO DAILY PRN 01/09/18 03/19/18 History Multivitamins, Thera [Multivitamin 1 tab PO DAILY 01/09/18 03/19/18 History (formulary)] Acetaminophen Tab [Tylenol] 650 mg PO Q6HR PRN tab 01/11/18 03/19/18 Rx Psyllium Husk [Metamucil] 1 cap PO BID 03/19/18 03/19/18 History Allergies Allergy/AdvReac Type Severity Reaction Status Date / Time No Known Allergies Allergy Verified 03/19/18 15:23 Surgical - Exam Vital Signs Temp Pulse Resp BP Pulse Ox 98.0 F 78 18 165/74 99 03/24/18 08:01 03/24/18 08:01 03/24/18 08:01 03/24/18 08:01 03/24/18 08:01 Physical exam: General: Well-developed, well-nourished HEENT: Normocephalic, sclerae nonicteric Abdomen: Nontender, nondistended Extremities: No edema Neuro: Alert and oriented Assessment and Plan (1) Change in bowel habits Narrative/Plan: Will proceed with colonoscopy Current Visit: Yes Status: Acute Code(s): R19.4 - CHANGE IN BOWEL HABIT SNOMED Code(s): 617139792
--- NOTE | 2018-03-24 09:28 | P.PCN ---
Date of Procedure: 03/24/18 Procedure(s) Performed: PREOPERATIVE DIAGNOSIS: Change in bowel habits, history of diverticulitis POSTOPERATIVE DIAGNOSIS: Diverticulosis, small ascending colon polyp PROCEDURE: Colonoscopy with biopsy ANESTHESIA: MAC SURGEON: Everett Carson M.D. SPECIMENS: Ascending colon polyp ENDOSCOPIC PROCEDURE: The patient was placed on the endoscopy table in the left decubitus position. The Olympus colonoscope was inserted into the anus and passed under direct visualization to the base of the cecum. The appendiceal orifice was visualized. From that point the scope was slowly withdrawn inspecting all surfaces carefully. There were no neoplastic inflammatory or polypoid lesions throughout the cecum. In the ascending colon a small polyp was seen and removed using the cold biopsy forceps. The remainder of the ascending transverse descending sigmoid and rectum were free of abnormalities. There was moderate left-sided diverticulosis present without inflammatory changes. Digital rectal examination was normal. The patient was taken to the recovery room in stable condition per anesthesia guidelines. RECOMMENDATIONS: Wait biopsy results. Increase fiber. Will discuss further plans regarding the patient's recurrent diverticulitis postoperatively.
[2018-03-24 10:12] VITALS: BP 131/75; PULSE 52
== END 2018-03-24 10:19 | disposition home or self-care (01) ==
LOC: ORWHC2ENDO 07:47
PROVIDERS: ATTEND Surgery
DX: D12.2 Benign neoplasm of ascending colon (principal); K57.30 Diverticulosis of large intestine without perforation or abscess without bleeding; I10 Essential (primary) hypertension; Z96.641 Presence of right artificial hip joint; Z79.899 Other long term (current) drug therapy; Z79.1 Long term (current) use of non-steroidal anti-inflammatories (NSAID)
CPT/HCPCS: 45380; J2704; 88305

== ENCOUNTER → 2019-04-15 | Outpatient (CLI) | payer MEDICARE, BC ==
--- NOTE | 2019-04-15 15:12 | US ---
EXAMINATION TYPE: US kidneys/renal and bladder DATE OF EXAM: 04/15/2019 COMPARISON: Renal ultrasound dated 10/08/2017 CLINICAL HISTORY: N28.9 disorder of kidney and ureter, unspecified. Pt states abnormal renal function labs EXAM MEASUREMENTS: Right Kidney: 10.8 x 5.4 x 5.2 cm Left Kidney: 11.2 x 5.9 x 4.5 cm Right Kidney: Appeared wnl Left Kidney: Appeared wnl Bladder: Appeared wnl Bilateral Jets seen: Yes Incidental, spleen size upper limits of normal measuring 13.2 cm There is no evidence for hydronephrosis at this point in time. No nephrolithiasis is seen. No snow s are identified. The urinary bladder is anechoic. Bilateral ureteral jets are seen. IMPRESSION: 1. No hydronephrosis, nephrolithiasis nor sonographic sequela of medical renal disease. 2. Incidentally noted upper limits of normal size of the spleen.
== END | disposition home or self-care (01) ==
LOC: RADUSWWP 13:24
PROVIDERS: ATTEND Family Medicine
DX: N28.9 Disorder of kidney and ureter, unspecified (principal)
CPT/HCPCS: 76770

== ENCOUNTER 2019-08-11 17:18 | Emergency (ER) | payer BC, MEDICARE ==
[2019-08-11 17:24] VITALS: RESP 18
[2019-08-11] MEDS ORDERED: DIPHENOX-ATROP 2.5-0.025 MG 1 EACH TAB PO STA (17:42)
--- NOTE | 2019-08-11 17:51 | ED ---
General Adult HPI - General Chief complaint: Abdominal Pain Stated complaint: Abd pain,Diarrhea Time Seen by Provider: 08/11/19 17:20 Source: patient, RN notes reviewed, old records reviewed Mode of arrival: ambulatory Limitations: no limitations - History of Present Illness Initial comments: THIS IS A 68-YEAR-OLD MALE WHO PRESENTS TO THE EMERGENCY DEPARTMENT COMPLAINING OF abdominal pain. Patient states he had a bowel resection after a cousin diverticulitis. Patient states on Thursday started having diarrhea and ever since then he has had diarrhea constantly and he's been having lower abdominal pain both on the right left and suprapubic region. Patient states it is not relieved with having diarrhea. Patient states was on the toilet and felt lightheaded as though he might pass out so he decided to come the emergency department. Patient denies any nausea vomiting. Patient denies any chest pain difficulty breathing shortness of breath. Patient denies any fever chills. Patient denies any back pain. - Related Data Home Medications Medication Instructions Recorded Confirmed Losartan [Cozaar] 50 mg PO QAM 11/12/16 03/19/18 Vit C/E/Zn/Coppr/Lutein/Zeaxan 1 cap PO DAILY 11/12/16 03/19/18 [Preservision Areds 2 Softgel] Ibuprofen [Motrin Ib] 600 mg PO DAILY PRN 01/09/18 03/19/18 Multivitamins, Thera [Multivitamin 1 tab PO DAILY 01/09/18 03/19/18 (formulary)] Psyllium Husk [Metamucil] 1 cap PO BID 03/19/18 03/19/18 Previous Rx's Medication Instructions Recorded Acetaminophen Tab [Tylenol] 650 mg PO Q6HR PRN tab 01/11/18 Allergies Allergy/AdvReac Type Severity Reaction Status Date / Time No Known Allergies Allergy Verified 08/11/19 17:23 Review of Systems ROS Statement: Those systems with pertinent positive or pertinent negative responses have been documented in the HPI. ROS Other: All systems not noted in ROS Statement are negative. 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 eccymosis History of Any Multi-Drug Resistant Organisms: None Reported Past Surgical History: Joint Replacement, Orthopedic Surgery Additional Past Surgical History / Comment(s): 4-5 ARTHROSCOPIC SURG. SUMMER KNEES, SUMMER ROT CUFF REPAIR, RT WRIST SURG, LT ELBOW SURG., SUMMER ACHILLES TENDON REPAIRS. RIGHT HIP REPLACEDMENT. bowel resection 10/2018 r/t diverticulitis, Past Anesthesia/Blood Transfusion Reactions: No Reported Reaction Additional Past Anesthesia/Blood Transfusion Reaction / Comment(s): BP was low after last surg. Past Psychological History: No Psychological Hx Reported Smoking Status: Never smoker Past Alcohol Use History: None Reported Past Drug Use History: None Reported - Past Family History Mother Family Medical History: Cancer Additional Family Medical History / Comment(s): LUNG Father Family Medical History: Cancer Additional Family Medical History / Comment(s): BOWEL General Exam - General Exam Comments Initial Comments: GENERAL: Patient is well-developed and well-nourished. Patient is nontoxic and well- hydrated and is in mild distress. ENT: Neck is soft and supple. No significant lymphadenopathy is noted. Oropharynx is clear. Moist mucous membranes. Neck has full range of motion without eliciting any pain. EYES: The sclera were anicteric and conjunctiva were pink and moist. Extraocular movements were intact and pupils were equal round and reactive to light. Eyelids were unremarkable. PULMONARY: Unlabored respirations. Good breath sounds bilaterally. No audible rales rhonc hi or wheezing was noted. CARDIOVASCULAR: There is a regular rate and rhythm without any murmurs gallops or rubs. ABDOMEN: Patient has lower abdominal pain both on the right and left side. SKIN: Skin is clear with no lesions or rashes and otherwise unremarkable. NEUROLOGIC: Patient is alert and oriented x3. Cranial nerves II through XII are grossly intact. Motor and sensory are also intact. Normal speech, volume and content. Symmetrical smile. MUSCULOSKELETAL: Normal extremities with adequate strength and full range of motion. LYMPHATICS: No significant lymphadenopathy is noted PSYCHIATRIC: Normal psychiatric evaluation. Limitations: no limitations Course Vital Signs 08/11/19 08/11/19 17:20 19:21 Temperature 99.0 F Pulse Rate 68 68 Respiratory 18 18 Rate Blood Pressure 150/79 138/56 O2 Sat by Pulse 98 98 Oximetry Medical Decision Making - Medical Decision Making EKG shows normal sinus rhythm at 66 bpm VA interval 258 QRS is 94 Q-T intervals 400 QTC is 419. Patient's EKG shows no ST segment elevation or depression. ct OF THE ADMISSION NO ACUTE ABNORMALITY. i WENT BACK INTO REEVALUATE THE PATIENT AFTER HE HAD SOME lOMOTIL AND SOME FLUID. pATIENT STATED HE FELT CONSIDERABLY BETTER AND WAS COMFORTABLE GOING HOME. - Lab Data Result diagrams: 08/11/19 18:05 08/11/19 18:05 Lab Results 08/11/19 08/11/19 08/11/19 Range/Units 18:05 18:05 18:05 WBC 10.6 (3.8-10.6) k/uL RBC 4.60 (4.30-5.90) m/uL Hgb 16.1 (13.0-17.5) gm/dL Hct 43.4 (39.0-53.0) % MCV 94.4 (80.0-100.0) fL MCH 35.0 (25.0-35.0) pg MCHC 37.1 H (31.0-37.0) g/dL RDW 13.7 (11.5-15.5) % Plt Count 184 (150-450) k/uL Neutrophils % 86 % Lymphocytes % 7 % Monocytes % 6 % Eosinophils % 1 % Basophils % 0 % Neutrophils # 9.1 H (1.3-7.7) k/uL Lymphocytes # 0.7 L (1.0-4.8) k/uL Monocytes # 0.6 (0-1.0) k/uL Eosinophils # 0.1 (0-0.7) k/uL Basophils # 0.0 (0-0.2) k/uL Sodium 134 L (137-145) mmol/L Potassium 4.4 (3.5-5.1) mmol/L Chloride 102 (98-107) mmol/L Carbon Dioxide 21 L (22-30) mmol/L Anion Gap 11 mmol/L BUN 21 H (9-20) mg/dL Creatinine 1.24 (0.66-1.25) mg/dL Est GFR (CKD-EPI)AfAm 68 (>60 ml/min/1.73 sqM) Est GFR (CKD-EPI)NonAf 59 (>60 ml/min/1.73 sqM) Glucose 98 (74-99) mg/dL Calcium 9.7 (8.4-10.2) mg/dL Total Bilirubin 1.0 (0.2-1.3) mg/dL AST 31 (17-59) U/L ALT 26 (4-49) U/L Alkaline Phosphatase 64 (38-126) U/L Total Protein 7.5 (6.3-8.2) g/dL Albumin 4.6 (3.5-5.0) g/dL Amylase 39 (30-110) U/L Lipase 48 (23-300) U/L Urine Color Yellow Urine Appearance Clear (Clear) Urine pH 5.0 (5.0-8.0) Ur Specific [place] 1.014 (1.001-1.035) Urine Protein Negative (Negative) Urine Glucose (UA) Negative (Negative) Urine Ketones 1+ H (Negative) Urine Blood Negative (Negative) Urine Nitrite Negative (Negative) Urine Bilirubin Negative (Negative) Urine Urobilinogen <2.0 (<2.0) mg/dL Ur Leukocyte Esterase Negative (Negative) Disposition Clinical Impression: Diarrhea Disposition: HOME SELF-CARE Condition: Good Instructions (If sedation given, give patient instructions): Acute Diarrhea (ED) Is patient prescribed a controlled substance at d/c from ED?: No Referrals: Sina Bustos DO [Primary Care Provider] - 1-2 days Time of Disposition: 20:47
[2019-08-11 18:24] LABS: Basophils % (A) 0 %; Eosinophils # (A) 0.1 k/uL (0-0.7); Eosinophils % (A) 1 %; HCT 43.4 % (39.0-53.0); HGB 16.1 gm/dL (13.0-17.5); Lymphocytes # (A) 0.7 k/uL (1.0-4.8); Lymphocytes % (A) 7 %; MCHC 37.1 g/dL (31.0-37.0); MCV 94.4 fL (80.0-100.0); Mean Platelet Volume 8.2; Monocytes # (A) 0.6 k/uL (0-1.0); Monocytes % (A) 6 %; Neutrophils # (A) 9.1 k/uL (1.3-7.7); Neutrophils % (A) 86 %; Platelet Count 184 k/uL (150-450); RDW 13.7 % (11.5-15.5); WBC 10.6 k/uL (3.8-10.6)
[2019-08-11 18:28] LABS: Albumin 4.6 g/dL (3.5-5.0); Calcium 9.7 mg/dL (8.4-10.2); Potassium 4.4 mmol/L (3.5-5.1); Total Protein 7.5 g/dL (6.3-8.2)
[2019-08-11 18:33] LABS: Appearance,Urine Clear (Clear); Bilirubin,Urine Negative (Negative); Blood,Urine Negative (Negative); Color,Urine Yellow; Glucose,Urine (UA) Negative (Negative); Ketones,Urine 1+ (Negative); Leukocyte Esterase,Urine Negative (Negative); Nitrite,Urine Negative (Negative); Protein,Urine Negative (Negative); Specific Gravity,Urine 1.014 (1.001-1.035); Urobilinogen,Urine <2.0 mg/dL (<2.0)
--- NOTE | 2019-08-11 19:36 | CT ---
EXAMINATION TYPE: CT abdomen pelvis w con DATE OF EXAM: 08/11/2019 COMPARISON: 03/11/2018 HISTORY: Constipation and abdominal pain CT DLP: 1597.6 mGycm Automated exposure control for dose reduction was used. CONTRAST: Performed with IV Contrast, patient injected with 100 mL of Isovue 300. Lung bases are clear. There is no pleural effusion. Heart size is normal. There is no pericardial eff usion. Liver spleen pancreas gallbladder appear normal. Bile ducts are not dilated. Stomach appears n ormal. There is no adrenal mass. Kidneys show satisfactory contrast opacification. There is no hydronephrosi s. Delayed images show normal excretion. There is no retroperitoneal adenopathy. Ureters are not dila tiago. Abdominal aorta is atheromatous. Bladder distends smoothly. There is right hip prosthesis. There is no free fluid in the pelvis. There is previous colon surgery with anastomosis of the sigmoid colo n. There is 4.5 cm rounded fat density mass in the mid pelvis on the right side consistent with a lip carmelina. The appendix appears normal. There is no mesenteric edema. There is no ascites or free air. Ther e is no sign of a bowel obstruction. There are multiple diverticula of the proximal sigmoid colon. Th ere are also diverticula of the descending colon. There is very minimal fat stranding of the proximal sigmoid colon. Lumbar vertebra have normal alignment. There is hypertrophic bridging osteophyte formation anteriorly throughout the lumbar spine. Posterior elements are intact. There is no compression fracture. IMPRESSION: Mild atherosclerotic vascular disease. Spondylotic changes in the lumbar spine. No acute abnormality of the abdomen pelvis. There is colonic diverticulosis with minimal evidence for mild diverticulitis proximal sigmoid colon.
[2019-08-11] MEDS ORDERED: DIPHENOX-ATROP STARTER PACK 8 TAB BTL PO STA (20:50)
[2019-08-11 21:06] VITALS: BP 120/65; PULSE 60; TEMP 97.8
== END 2019-08-11 21:06 | disposition home or self-care (01) ==
LOC: EC 17:18
DX: R19.7 Diarrhea, unspecified (principal); R10.31 Right lower quadrant pain; R10.32 Left lower quadrant pain; I10 Essential (primary) hypertension; Z79.899 Other long term (current) drug therapy
CPT/HCPCS: 36415; 93005; 80053; 82150; 83690; 85025; 81003; 74177; 99285; Q9967

== ENCOUNTER 2020-08-22 03:29 | Emergency (ER) | payer MEDICARE ==
[2020-08-22 03:45] VITALS: RESP 18
[2020-08-22] MEDS ORDERED: MORPHINE SULFATE 4 MG/ML SYRINGE IV STA (03:46)
[2020-08-22] MEDS ORDERED: SODIUM CHLORIDE 0.9% 1,000 ML IV STA (03:46)
--- NOTE | 2020-08-22 03:46 | ED ---
Abdominal Pain HPI - General Chief Complaint: Abdominal Pain Stated Complaint: Abdominal Pain Time Seen by Provider: 08/22/20 03:40 Source: patient, RN notes reviewed, old records reviewed Mode of arrival: ambulatory Limitations: no limitations - History of Present Illness Initial Comments: This is a 69-year-old male DF for evaluation patient presents today for evaluation of abdominal pain. Positive nausea, weakness vomiting. Severe abdominal pain. No fevers. History of diverticulitis versus feel similar. MD Complaint: abdominal pain -: days(s) Location: diffuse, LLQ Radiation: LLQ, L flank Migration to: suprapubic Severity: moderate Severity scale (1-10): 6 Quality: stabbing Consistency: constant Improves With: nothing Worsens With: nothing Context: other (none) Associated Symptoms: nausea Treatments Prior to Arrival: other (none) - Related Data Home Medications Medication Instructions Recorded Confirmed Losartan [Cozaar] 50 mg PO QAM 11/12/16 03/19/18 Vit C/E/Zn/Coppr/Lutein/Zeaxan 1 cap PO DAILY 11/12/16 03/19/18 [Preservision Areds 2 Softgel] Ibuprofen [Motrin Ib] 600 mg PO DAILY PRN 01/09/18 03/19/18 Multivitamins, Thera [Multivitamin 1 tab PO DAILY 01/09/18 03/19/18 (formulary)] Psyllium Husk [Metamucil] 1 cap PO BID 03/19/18 03/19/18 Previous Rx's Medication Instructions Recorded Acetaminophen Tab [Tylenol] 650 mg PO Q6HR PRN tab 01/11/18 Amoxic-Pot Clav 875-125Mg 1 tab PO Q12HR #14 tablet 08/22/20 [Augmentin 875-125] Allergies Allergy/AdvReac Type Severity Reaction Status Date / Time No Known Allergies Allergy Verified 08/22/20 03:40 Review of Systems ROS Statement: Those systems with pertinent positive or pertinent negative responses have been documented in the HPI. ROS Other: All systems not noted in ROS Statement are negative. 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 eccymosis History of Any Multi-Drug Resistant Organisms: None Reported Past Surgical History: Bowel Resection, Joint Replacement, Orthopedic Surgery Additional Past Surgical History / Comment(s): 4-5 ARTHROSCOPIC SURG. SUMMER KNEES, SUMMER ROT CUFF REPAIR, RT WRIST SURG, LT ELBOW SURG., SUMMER ACHILLES TENDON REPAIRS. RIGHT HIP REPLACEDMENT. bowel resection 10/2018 r/t diverticulitis, Past Anesthesia/Blood Transfusion Reactions: No Reported Reaction Additional Past Anesthesia/Blood Transfusion Reaction / Comment(s): BP was low after last surg. Past Psychological History: No Psychological Hx Reported Smoking Status: Never smoker Past Alcohol Use History: Rare Past Drug Use History: None Reported - Past Family History Mother Family Medical History: Cancer Additional Family Medical History / Comment(s): LUNG Father Family Medical History: Cancer Additional Family Medical History / Comment(s): BOWEL General Exam Limitations: no limitations General appearance: alert, in no apparent distress Head exam: Present: atraumatic, normocephalic, normal inspection Eye exam: Present: normal appearance, PERRL, EOMI. Absent: scleral icterus, conjunctival injection, periorbital swelling ENT exam: Present: normal exam, mucous membranes moist Neck exam: Present: normal inspection. Absent: tenderness, meningismus, lymphadenopathy Respiratory exam: Present: normal lung sounds bilaterally. Absent: respiratory distress, wheezes, rales, rhonchi, stridor Cardiovascular Exam: Present: regular rate, normal rhythm, normal heart sounds. Absent: systolic murmur, diastolic murmur, rubs, gallop, clicks GI/Abdominal exam: Present: soft, normal bowel sounds. Absent: distended, tenderness, guarding, rebound, rigid Extremities exam: Present: normal inspection, full ROM, normal capillary refill. Absent: tenderness, pedal edema, joint swelling, calf tenderness Back exam: Present: normal inspection Neurological exam: Present: alert, oriented X3, CN II-XII intact Psychiatric exam: Present: normal affect, normal mood Skin exam: Present: warm, dry, intact, normal color. Absent: rash Course Vital Signs 08/22/20 08/22/20 03:40 05:44 Temperature 97 F L 98.8 F Pulse Rate 66 16 L Respiratory 18 18 Rate Blood Pressure 179/74 140/67 O2 Sat by Pulse 98 98 Oximetry - Reevaluation(s) Reevaluation #1: Medical record is reviewed Patient symptoms significantly improved here in the ER Patient informed results questions answered Medical Decision Making - Medical Decision Making 69 male with abdominal pain and diverticulitis, uncomplicated. Patient will try outpatient treatment. Patient can be discharged home - Lab Data Result diagrams: 08/22/20 03:56 08/22/20 03:56 Lab Results 08/22/20 08/22/20 08/22/20 Range/Units 03:56 03:56 03:56 WBC 11.4 H (3.8-10.6) k/uL RBC 4.98 (4.30-5.90) m/uL Hgb 16.4 (13.0-17.5) gm/dL Hct 46.7 (39.0-53.0) % MCV 93.8 (80.0-100.0) fL MCH 33.0 (25.0-35.0) pg MCHC 35.1 (31.0-37.0) g/dL RDW 12.8 (11.5-15.5) % Plt Count 153 (150-450) k/uL MPV 7.9 Neutrophils % 78 % Lymphocytes % 10 % Monocytes % 7 % Eosinophils % 3 % Basophils % 1 % Neutrophils # 8.9 H (1.3-7.7) k/uL Lymphocytes # 1.2 (1.0-4.8) k/uL Monocytes # 0.8 (0-1.0) k/uL Eosinophils # 0.4 (0-0.7) k/uL Basophils # 0.1 (0-0.2) k/uL Sodium 139 (137-145) mmol/L Potassium 4.6 (3.5-5.1) mmol/L Chloride 106 (98-107) mmol/L Carbon Dioxide 24 (22-30) mmol/L Anion Gap 9 mmol/L BUN 20 (9-20) mg/dL Creatinine 1.35 H (0.66-1.25) mg/dL Est GFR (CKD-EPI)AfAm 61 (>60 ml/min/1.73 sqM) Est GFR (CKD-EPI)NonAf 52 (>60 ml/min/1.73 sqM) Glucose 102 H (74-99) mg/dL Plasma Lactic Acid Fran (0.7-2.0) mmol/L Calcium 9.7 (8.4-10.2) mg/dL Total Bilirubin 0.8 (0.2-1.3) mg/dL AST 38 (17-59) U/L ALT 38 (4-49) U/L Alkaline Phosphatase 111 (38-126) U/L Total Protein 7.5 (6.3-8.2) g/dL Albumin 4.8 (3.5-5.0) g/dL Amylase 48 (30-110) U/L Lipase 122 (23-300) U/L Urine Color Light Yellow Urine Appearance Clear (Clear) Urine pH 5.5 (5.0-8.0) Ur Specific [place] 1.040 H (1.001-1.035) Urine Protein Negative (Negative) Urine Glucose (UA) Negative (Negative) Urine Ketones Negative (Negative) Urine Blood Negative (Negative) Urine Nitrite Negative (Negative) Urine Bilirubin Negative (Negative) Urine Urobilinogen <2.0 (<2.0) mg/dL Ur Leukocyte Esterase Negative (Negative) 08/22/20 Range/Units 03:56 WBC (3.8-10.6) k/uL RBC (4.30-5.90) m/uL Hgb (13.0-17.5) gm/dL Hct (39.0-53.0) % MCV (80.0-100.0) fL MCH (25.0-35.0) pg MCHC (31.0-37.0) g/dL RDW (11.5-15.5) % Plt Count (150-450) k/uL MPV Neutrophils % % Lymphocytes % % Monocytes % % Eosinophils % % Basophils % % Neutrophils # (1.3-7.7) k/uL Lymphocytes # (1.0-4.8) k/uL Monocytes # (0-1.0) k/uL Eosinophils # (0-0.7) k/uL Basophils # (0-0.2) k/uL Sodium (137-145) mmol/L Potassium (3.5-5.1) mmol/L Chloride (98-107) mmol/L Carbon Dioxide (22-30) mmol/L Anion Gap mmol/L BUN (9-20) mg/dL Creatinine (0.66-1.25) mg/dL Est GFR (CKD-EPI)AfAm (>60 ml/min/1.73 sqM) Est GFR (CKD-EPI)NonAf (>60 ml/min/1.73 sqM) Glucose (74-99) mg/dL Plasma Lactic Acid Fran 0.8 (0.7-2.0) mmol/L Calcium (8.4-10.2) mg/dL Total Bilirubin (0.2-1.3) mg/dL AST (17-59) U/L ALT (4-49) U/L Alkaline Phosphatase (38-126) U/L Total Protein (6.3-8.2) g/dL Albumin (3.5-5.0) g/dL Amylase (30-110) U/L Lipase (23-300) U/L Urine Color Urine Appearance (Clear) Urine pH (5.0-8.0) Ur Specific [place] (1.001-1.035) Urine Protein (Negative) Urine Glucose (UA) (Negative) Urine Ketones (Negative) Urine Blood (Negative) Urine Nitrite (Negative) Urine Bilirubin (Negative) Urine Urobilinogen (<2.0) mg/dL Ur Leukocyte Esterase (Negative) - Radiology Data Radiology results: report reviewed (CT head and pelvis is positive for diverticulitis), image reviewed Disposition Clinical Impression: Diverticulitis, Abdominal pain Disposition: HOME SELF-CARE Condition: Good Instructions (If sedation given, give patient instructions): Diverticulitis (ED ), Diverticulitis Diet (ED) Prescriptions: Amoxic-Pot Clav 875-125Mg [Augmentin 875-125] 1 tab PO Q12HR #14 tablet Is patient prescribed a controlled substance at d/c from ED?: No Referrals: Sina Bustos DO [Primary Care Provider] - 1-2 days
[2020-08-22 04:07] LABS: Basophils # (A) 0.1 k/uL (0-0.2); Basophils % (A) 1 %; Eosinophils # (A) 0.4 k/uL (0-0.7); Eosinophils % (A) 3 %; HCT 46.7 % (39.0-53.0); HGB 16.4 gm/dL (13.0-17.5); Lymphocytes # (A) 1.2 k/uL (1.0-4.8); Lymphocytes % (A) 10 %; MCHC 35.1 g/dL (31.0-37.0); MCV 93.8 fL (80.0-100.0); Mean Platelet Volume 7.9; Monocytes # (A) 0.8 k/uL (0-1.0); Monocytes % (A) 7 %; Neutrophils # (A) 8.9 k/uL (1.3-7.7); Neutrophils % (A) 78 %; Platelet Count 153 k/uL (150-450); RBC 4.98 m/uL (4.30-5.90); RDW 12.8 % (11.5-15.5); WBC 11.4 k/uL (3.8-10.6)
[2020-08-22 04:22] LABS: Albumin 4.8 g/dL (3.5-5.0); Calcium 9.7 mg/dL (8.4-10.2); Potassium 4.6 mmol/L (3.5-5.1); Total Bilirubin 0.8 mg/dL (0.2-1.3); Total Protein 7.5 g/dL (6.3-8.2)
--- NOTE | 2020-08-22 05:02 | CT ---
EXAM: CT Abdomen and Pelvis With Intravenous Contrast CLINICAL HISTORY: ITS.REASON CT Reason: abdominal pain TECHNIQUE: Axial computed tomography images of the abdomen and pelvis with intravenous contrast. CTDI is 33.77 mGy and DLP is 1567.7 mGy-cm. This CT exam was performed using one or more of the following dose reduction techniques: automated exposure control, adjustment of the mA and/or kV according to patient size, and/or use of iterative reconstruction technique. COMPARISON: CT abdomen/pelvis on 08/11/2019 FINDINGS: Lung bases: Unremarkable. No mass. No consolidation. ABDOMEN: Liver: Unremarkable. No mass. Gallbladder and bile ducts: Unremarkable. No calcified stones. No ductal dilation. Pancreas: Unremarkable. No mass. No ductal dilation. Spleen: Unremarkable. No splenomegaly. Adrenals: Unremarkable. No mass. Kidneys and ureters: Mild nonspecific bilateral perinephric fat stranding. No hydronephrosis or obstructing stone. Stomach and bowel: Diverticulosis. Inflammatory changes of the mid descending colon, compatible with acute diverticulitis. Evaluation of the stomach is limited by underdistention. No small bowel obstruction. PELVIS: Appendix: Normal appendix. Bladder: Unremarkable. No mass. Reproductive: Calcifications of the prostate. ABDOMEN and PELVIS: Intraperitoneal space: Stable nonspecific fatty structure in the lower abdomen/pelvis with thin dense rim which may represent a lipoma. No free air. No significant fluid collection. Bones/joints: No acute fracture. No dislocation. Soft tissues: Small fat-containing left inguinal hernia. Vasculature: Atherosclerotic changes of the vasculature. No aortic aneurysm or dissection. Lymph nodes: Unremarkable. No enlarged lymph nodes. IMPRESSION: Diverticulosis. Inflammatory changes of the mid descending colon, compatible with acute diverticulitis.
[2020-08-22] MEDS ORDERED: ONDANSETRON 4 MG ODT STARTER PACK 2 TAB BTL PO STA (05:24)
[2020-08-22] MEDS ORDERED: AMOXIC-POT CLAV 875-125MG 1 EACH TAB PO STA (05:24)
[2020-08-22] MEDS ORDERED: ONDANSETRON ODT 4 MG TAB PO STA (05:24)
[2020-08-22] MEDS ORDERED: ACET/COD 300 MG/30 MG STARTER PACK 6 TAB BTL PO STA (05:24)
[2020-08-22] MEDS ORDERED: Acetaminophen-Codeine 300-30mg TAB PO STA (05:24)
[2020-08-22] MEDS ORDERED: AMOXIC-POT CLAV 875MG STARTER PACK 2 TAB BTL PO STA (05:24)
[2020-08-22] MEDS ORDERED: DICYCLOMINE 10 MG/ML 2 ML AMP IM STA (05:34)
[2020-08-22] MEDS ORDERED: KETOROLAC 15 MG/ML 1 ML VIAL IVP STA (05:34)
[2020-08-22] MEDS ORDERED: HYDROmorphone 1 MG/ML 1 ML SYRINGE IVP STA (05:34)
[2020-08-22 05:39] LABS: Appearance,Urine Clear (Clear); Bilirubin,Urine Negative (Negative); Blood,Urine Negative (Negative); Color,Urine Light Yellow; Glucose,Urine (UA) Negative (Negative); Ketones,Urine Negative (Negative); Leukocyte Esterase,Urine Negative (Negative); Nitrite,Urine Negative (Negative); PH, Urine 5.5 (5.0-8.0); Protein,Urine Negative (Negative); Urobilinogen,Urine <2.0 mg/dL (<2.0)
[2020-08-22 05:45] VITALS: BP 140/67; PULSE 16; TEMP 98.8
== END 2020-08-22 06:11 | disposition home or self-care (01) ==
LOC: EC 03:29
DX: K57.32 Diverticulitis of large intestine without perforation or abscess without bleeding (principal); I10 Essential (primary) hypertension
CPT/HCPCS: 36415; 80053; 82150; 83605; 83690; 85025; 81003; 74177; 99284; 96374; 96375 ×2; 96372; J2270; J0500; J1170; J1885; S0119; Q9967

== ENCOUNTER 2020-10-24 07:45 | Day surgery (SDC) | payer MEDICARE ==
[2020-10-23 12:16] VITALS: BMI 30.8
[~2020-10-24 07:45] MED LIST changes: -LIDOCAINE 1% 20 ML VIAL (10MG/ML) FOR IV START INTRADERMA PRN
[2020-10-24 08:20] VITALS: TEMP 98.2
[2020-10-24] MEDS ORDERED: LIDOCAINE 1% (10MG/ML) FOR IV START INTRADERMA ONE (08:28)
[2020-10-24] MEDS ORDERED: LIDOCAINE 1% INJ 10MG/ML (20 ML MDV) ONE (08:42)
[2020-10-24] MEDS ORDERED: PROPOFOL 10 MG/ML 20 ML VIAL IV ONE (08:42)
--- NOTE | 2020-10-24 08:59 | P.PCN ---
Date of Procedure: 10/24/20 Procedure(s) Performed: BRIEF HISTORY: Patient is a 69-year-old pleasant white male scheduled for an elective colonoscopy as a part of evaluation of prior history of colon polyps. PROCEDURE PERFORMED: Colonoscopy snare polypectomy. PREOPERATIVE DIAGNOSIS: History of colon polyps. IV sedation per Anesthesia. PROCEDURE: After informed consent was obtained, the patient, was brought into the endoscopy unit. IV sedation was administered by Anesthesia under continuous monitoring. Digital rectal examination was normal. Initially the Olympus CF-160 flexible video colonoscope was then inserted in the rectum, gradually advanced into the cecum without any difficulty. Careful examination was performed as the scope was gradually being withdrawn. Ileocecal valve and the appendiceal orifice were visualized and appeared normal. Prep was excellent. The base of the cecum there was a 5 mm and 1 cm polyp removed by snare polypectomy. In the ascending colon there was another 5 mm sessile polyp removed by snare polypectomy. Rest of the cecum, ascending colon, transverse colon, descending colon, sigmoid colon, and rectum appeared normal. Scattered left sided diverticulosis seen. Retroflexion was performed in the rectum and no lesions were seen. The patient tolerated the procedure well. IMPRESSION: 5 mm and 1 cm cecal polyp status post polypectomy 5 mm ascending colon polyp status post polypectomy Scattered left-sided diverticulosis RECOMMENDATIONS: Findings of this examination were discussed with the patient as well as a family. She was advised to follow with the biopsy results. If the biopsy reveals adenoma he can have a repeat colonoscopy in 3-5 years.
[2020-10-24 09:04] VITALS: RESP 16
[2020-10-24 09:26] VITALS: BP 120/70; PULSE 51
== END 2020-10-24 09:41 | disposition home or self-care (01) ==
LOC: ORWHC2ENDO 07:45
PROVIDERS: ATTEND Internal Medicine Gastroenterology
DX: K57.30 Diverticulosis of large intestine without perforation or abscess without bleeding (principal); D12.0 Benign neoplasm of cecum; D12.2 Benign neoplasm of ascending colon; I10 Essential (primary) hypertension; E78.5 Hyperlipidemia, unspecified; Z86.010 Personal history of colon polyps
CPT/HCPCS: 45385; 88305; J2001; J2704

== ENCOUNTER 2021-02-09 21:05 | Emergency (ER) | payer MEDICARE ==
[2021-02-09 22:07] VITALS: TEMP 98.1
--- NOTE | 2021-02-09 23:01 | XR ---
EXAMINATION TYPE: XR chest 2V DATE OF EXAM: 02/09/2021 COMPARISON: NONE HISTORY: Fall. Pain TECHNIQUE: 2 views FINDINGS: Heart and mediastinum are normal. Lungs are clear of infiltrate. There is no pleural effusi on. There is spurring in the thoracic spine. Costophrenic angles are clear. IMPRESSION: No active cardiopulmonary disease. Normal heart.
[2021-02-09] MEDS ORDERED: MORPHINE SULFATE 4 MG/ML SYRINGE IV STA (23:33)
[2021-02-09] MEDS ORDERED: SODIUM CHLORIDE 0.9% 1,000 ML IV STA (23:33)
--- NOTE | 2021-02-09 23:57 | ED ---
Chest Pain HPI - General Chief Complaint: Chest Pain Stated Complaint: Fell on steps, SOB Time Seen by Provider: 02/09/21 23:26 Source: patient, RN notes reviewed, old records reviewed Mode of arrival: ambulatory Limitations: no limitations - History of Present Illness Initial Comments: This is a 70-year-old male to the emergency today. Patient presents today for evaluation regards to right-sided pain chest pain after fall. Severe nature having difficulty moving of breathing currently. Fall was mechanical in nature. Patient has no blood thinners with history of high blood pressure high cholesterol MD Complaint: chest pain, other (Sided rib pain and chest wall pain) -: hour(s) Onset: other (After falling) Pain Location: right chest Pain Radiation: back Severity: severe Severity scale (1-10): 8 Quality: tightness, sharp Consistency: constant Improves With: nothing Worsens With: nothing Context: trauma/injury Anginal Symptoms: dyspnea Other Symptoms: cough Treatments Prior to Arrival: none - Related Data Home Medications Medication Instructions Recorded Confirmed Losartan [Cozaar] 50 mg PO QAM 11/12/16 10/24/20 Vit C/E/Zn/Coppr/Lutein/Zeaxan 2 cap PO DAILY 11/12/16 10/23/20 [Preservision Areds 2 Softgel] Ibuprofen [Motrin Ib] 600 mg PO DAILY PRN 01/09/18 10/23/20 Multivitamins, Thera [Multivitamin 1 tab PO DAILY 01/09/18 10/23/20 (formulary)] Psyllium Husk [Metamucil] 1 cap PO BID 03/19/18 10/23/20 Atorvastatin [Lipitor] 20 mg PO DAILY 10/23/20 10/23/20 Previous Rx's Medication Instructions Recorded Acetaminophen Tab [Tylenol] 650 mg PO Q6HR PRN tab 01/11/18 Allergies Allergy/AdvReac Type Severity Reaction Status Date / Time No Known Allergies Allergy Verified 02/09/21 22:07 Review of Systems ROS Statement: Those systems with pertinent positive or pertinent negative responses have been documented in the HPI. ROS Other: All systems not noted in ROS Statement are negative. 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 ecchymosis, diverticulitis History of Any Multi-Drug Resistant Organisms: None Reported Past Surgical History: Bowel Resection, Joint Replacement, Orthopedic Surgery Additional Past Surgical History / Comment(s): 4-5 ARTHROSCOPIC SURG. SUMMER KNEES, SUMMER ROT CUFF REPAIR, RT WRIST SURG, LT ELBOW SURG., SUMMER ACHILLES TENDON REPAIRS. RIGHT HIP REPLACEDMENT. bowel resection 10/2018 r/t diverticulitis, Past Anesthesia/Blood Transfusion Reactions: No Reported Reaction Additional Past Anesthesia/Blood Transfusion Reaction / Comment(s): BP was low after last surg. Past Psychological History: No Psychological Hx Reported Smoking Status: Never smoker Past Alcohol Use History: Occasional Past Drug Use History: None Reported - Past Family History Mother Family Medical History: Cancer Additional Family Medical History / Comment(s): LUNG Father Family Medical History: Cancer Additional Family Medical History / Comment(s): BOWEL General Exam Limitations: no limitations General appearance: alert, in no apparent distress Head exam: Present: atraumatic, normocephalic, normal inspection Eye exam: Present: normal appearance, PERRL, EOMI. Absent: scleral icterus, conjunctival injection, periorbital swelling ENT exam: Present: normal exam, mucous membranes moist Neck exam: Present: normal inspection. Absent: tenderness, meningismus, lymphadenopathy Respiratory exam: Present: normal lung sounds bilaterally. Absent: respiratory distress, wheezes, rales, rhonchi, stridor Cardiovascular Exam: Present: regular rate, normal rhythm, normal heart sounds, other (Significant for the chest pain of the right side of her chest). Absent: systolic murmur, diastolic murmur, rubs, gallop, clicks GI/Abdominal exam: Present: soft, normal bowel sounds. Absent: distended, tenderness, guarding, rebound, rigid Extremities exam: Present: normal inspection, full ROM, normal capillary refill. Absent: tenderness, pedal edema, joint swelling, calf tenderness Back exam: Present: normal inspection Neurological exam: Present: alert, oriented X3, CN II-XII intact Psychiatric exam: Present: normal affect, normal mood Skin exam: Present: warm, dry, intact, normal color. Absent: rash Course Vital Signs 02/09/21 02/10/21 22:02 01:44 Temperature 98.1 F Pulse Rate 64 56 L Respiratory 18 16 Rate Blood Pressure 166/92 164/76 O2 Sat by Pulse 98 96 Oximetry - Reevaluation(s) Reevaluation #1: 02/10/21 04:46 Medical record is reviewed Reevaluation #2: 02/10/21 04:46 Patient has pain control here in the ER able to ambulate no difficulties breathing Reevaluation #3: 02/10/21 04:46 Patient informed results and questions answered Chest Pain MDM - MDM 70 male to the emergency room today. Patient has significant right-sided rib pain chest pain after fall. Imaging is negative for significant traumatic injury CT chest abdomen pelvis patient can be discharged home Disposition Clinical Impression: Fall, Right rib fracture, Chest pain Disposition: HOME SELF-CARE Condition: Good Instructions (If sedation given, give patient instructions): Rib Fracture (ED) Is patient prescribed a controlled substance at d/c from ED?: No Referrals: Sina Bustos DO [Primary Care Provider] - 1-2 days
[2021-02-10 00:02] LABS: Basophils % (A) 0 %; Eosinophils # (A) 0.1 k/uL (0-0.7); Eosinophils % (A) 1 %; HCT 46.9 % (39.0-53.0); HGB 16.2 gm/dL (13.0-17.5); Lymphocytes # (A) 1.2 k/uL (1.0-4.8); Lymphocytes % (A) 11 %; MCH 32.6 pg (25.0-35.0); MCHC 34.5 g/dL (31.0-37.0); MCV 94.3 fL (80.0-100.0); Mean Platelet Volume 7.8; Monocytes # (A) 0.8 k/uL (0-1.0); Monocytes % (A) 8 %; Neutrophils # (A) 8.5 k/uL (1.3-7.7); Neutrophils % (A) 78 %; Platelet Count 184 k/uL (150-450); RBC 4.98 m/uL (4.30-5.90); RDW 13.2 % (11.5-15.5); WBC 10.8 k/uL (3.8-10.6)
[2021-02-10 00:11] LABS: Albumin 4.7 g/dL (3.5-5.0); Calcium 9.9 mg/dL (8.4-10.2); Magnesium 2.3 mg/dL (1.6-2.3); Potassium 4.7 mmol/L (3.5-5.1); Total Bilirubin 0.7 mg/dL (0.2-1.3); Total Protein 7.8 g/dL (6.3-8.2)
[2021-02-10 00:21] LABS: Partial Thromboplastin Time 23.9 sec (22.0-30.0); Prothrombin Time 10.5 sec (9.0-12.0)
[2021-02-10] MEDS ORDERED: SODIUM CHLORIDE 0.9% 1,000 ML IV STA (00:50)
[2021-02-10 01:44] VITALS: BP 164/76; PULSE 56; RESP 16
[2021-02-10] MEDS ORDERED: IBUPROFEN 600 MG STARTER PACK 4 TAB BTL PO STA (01:58)
[2021-02-10] MEDS ORDERED: ACET/COD 300 MG/30 MG STARTER PACK 6 TAB BTL PO STA (01:58)
--- NOTE | 2021-02-10 01:59 | CT ---
EXAMINATION TYPE: CT ChestAbdPelvis w con DATE OF EXAM: 02/10/2021 COMPARISON: 08/22/2020 HISTORY: right sided pain from fall CT DLP: 1528.3 mGycm Automated exposure control for dose reduction was used. CONTRAST: Performed with IV Contrast, patient injected with 80 mL of Isovue 300. The lungs are clear of infiltrate. There is no pleural effusion or pneumothorax. Mediastinum is kody l. Thoracic aorta is intact. There is no aneurysm or dissection. There are no hilar masses. There is no mediastinal adenopathy. There is minimal coronary artery calcification. Liver spleen stomach pancreas gallbladder appear intact. The bile ducts are not dilated. There is no adrenal mass. Kidneys have normal size. There is no hydronephrosis. Ureters are not dilat ed. There is no retroperitoneal adenopathy. Bladder distends smoothly. There is no inguinal hernia. T here is no free fluid in the pelvis. There is previous surgery at the sigmoid colon. There are sigmoi d diverticula. There is no diverticulitis. Appendix appears to be visualized posteriorly and appears normal. There is 2 cm fat-containing umbili constantine hernia. There is rounded fat density 4 cm mass in the pelvis on the right side of the urinary jojo dder that is consistent with simple lipoma. There is right hip prosthesis. Left hip joint appears intact. Sacroiliac joints are intact. The pelvi c ring is intact. The thoracic and lumbar vertebra appear intact. The sternum is intact. There is no compression fractu re. There is multilevel anterior moderate osteophyte formation in the thoracic and lumbar spine. The shoulder joints appear intact. Ribs appear intact. IMPRESSION: No evidence of traumatic injury of the chest abdomen pelvis. 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 Colonic di verticulosis.
[2021-02-10 02:16] LABS: Appearance,Urine Clear (Clear); Bilirubin,Urine Negative (Negative); Blood,Urine Negative (Negative); Color,Urine Light Yellow; Glucose,Urine (UA) Negative (Negative); Ketones,Urine Negative (Negative); Leukocyte Esterase,Urine Negative (Negative); Nitrite,Urine Negative (Negative); PH, Urine 5.5 (5.0-8.0); Protein,Urine Negative (Negative); Specific Gravity,Urine 1.034 (1.001-1.035); Urobilinogen,Urine <2.0 mg/dL (<2.0)
== END 2021-02-10 02:17 | disposition home or self-care (01) ==
LOC: EC 21:05
DX: S22.31XA Fracture of one rib, right side, initial encounter for closed fracture (principal); E78.5 Hyperlipidemia, unspecified; I10 Essential (primary) hypertension; W18.30XA Fall on same level, unspecified, initial encounter
CPT/HCPCS: 99285; 96374; 96361 ×2; 36415; 93005; 83880; 80053; 83690; 83735; 84484; 85025; 85610; 85730; 81003; 71046; 71260; 74177; J2270; Q9967

== ENCOUNTER 2022-09-26 05:52 | Day surgery (SDC) | payer MEDICARE ==
[2022-09-23 15:45] VITALS: BMI 32.6
[2022-09-26] MEDS ORDERED: ONDANSETRON 4 MG/2 ML VIAL IVP ONE ×3 (06:16→09:09)
[2022-09-26] MEDS ORDERED: LACTATED RINGERS 1,000 ML IV SCH (06:16)
[2022-09-26] MEDS ORDERED: MIDAZOLAM 2 MG/2 ML VIAL IV PRN (06:16)
[2022-09-26] MEDS ORDERED: DEXAMETHASONE SOD PHOSPHATE 4 MG/ML 1 ML VIAL IV ONE (06:16)
[2022-09-26] MEDS ORDERED: MIDAZOLAM 2 MG/2 ML VIAL IVP ONE (06:43)
[2022-09-26] MEDS ORDERED: HYDROmorphone 0.5 MG/0.5 ML SYRINGE IVP PRN (07:00)
[2022-09-26] MEDS ORDERED: DEXAMETHASONE SOD PHOSPHATE 4 MG/ML 1 ML VIAL ONE (07:21)
[2022-09-26] MEDS ORDERED: PROPOFOL 10 MG/ML 20 ML VIAL IV ONE (07:21)
[2022-09-26] MEDS ORDERED: MIDAZOLAM 2 MG/2 ML VIAL ONE (07:21)
[2022-09-26] MEDS ORDERED: LIDOCAINE 2% INJ 20 MG/ML (2 ML VIAL) ONE (07:21)
[2022-09-26] MEDS ORDERED: ROPIVACAINE 5 MG/ML 30 ML VIAL ONE (07:21)
[2022-09-26] MEDS ORDERED: ePHEDrine 50 MG/ML 1 ML VIAL ONE (07:21)
[2022-09-26] MEDS ORDERED: GLYCOPYRROLATE 0.2 MG/ML 2 ML VIAL ONE (07:21)
[2022-09-26] MEDS ORDERED: ceFAZolin 1,000 MG in SODIUM CHLORIDE 0.9% 1,000 ML IRRIGATION ONE (07:42)
--- NOTE | 2022-09-26 08:06 | P.ANPRN ---
Procedure Note - Anesthesia - Nerve Block Performed Right Adductor Canal Single Time Out Performed: Yes Date of Procedure: 09/26/22 Procedure Start Time: 06:42 Procedure Stop Time: 06:50 Location of Patient: PreOp Indication: Acute Post-Operative Pain, Requested by Surgeon Sedation Type: Sedate with meaningful contact maintained Preparation: Sterile Prep, Sterile Dressing Position: Supine Catheter: None Needle Types: Facet Needle Gauge: 20 Ultrasound used to visualize needle placement: Yes Ultrasound used to observe medication spread: Yes Injectate: 0.5% Ropivacaine (see comment for volume) (12 ml + decadron 2 mg) Blood Aspirated: No Pain Paresthesia on Injection Noted: No Resistance on Injection: Normal Image Stored and Saved: Yes Events: Uneventful and Well Tolerated Right iPack Single Time Out Performed: Yes Date of Procedure: 09/26/22 Procedure Start Time: 06:51 Procedure Stop Time: 06:56 Location of Patient: PreOp Indication: Acute Post-Operative Pain, Requested by Surgeon Sedation Type: Sedate with meaningful contact maintained Preparation: Sterile Prep, Sterile Dressing Position: Left Lateral Catheter: None Needle Types: Facet Needle Gauge: 20 Ultrasound used to visualize needle placement: Yes Ultrasound used to observe medication spread: Yes Injectate: 0.5% Ropivacaine (see comment for volume) (13 ml + decadron 2 mg) Blood Aspirated: No Pain Paresthesia on Injection Noted: No Resistance on Injection: Normal Image Stored and Saved: Yes Events: Uneventful and Well Tolerated Right Other (see comment) Single Time Out Performed: Yes (right Geniculate block) Date of Procedure: 09/26/22 Location of Patient: PreOp Indication: Acute Post-Operative Pain, Requested by Surgeon Sedation Type: Sedate with meaningful contact maintained Preparation: Sterile Prep, Sterile Dressing Position: Supine Catheter: None Needle Types: Facet Needle Gauge: 20 Ultrasound used to visualize needle placement: Yes Ultrasound used to observe medication spread: Yes Injectate: 0.5% Ropivacaine (see comment for volume) (50 ml) Blood Aspirated: No Pain Paresthesia on Injection Noted: No Resistance on Injection: Normal Image Stored and Saved: Yes Events: Uneventful and Well Tolerated
--- NOTE | 2022-09-26 08:09 | P.ANPRN ---
Procedure Note - Anesthesia - Nerve Block Performed Right Popliteal Single Time Out Performed: Yes Date of Procedure: 09/26/22 Procedure Start Time: 06:51 Procedure Stop Time: 06:57 Location of Patient: PreOp Indication: Acute Post-Operative Pain, Requested by Surgeon Sedation Type: Sedate with meaningful contact maintained Preparation: Sterile Prep, Sterile Dressing Position: Left Lateral Catheter: None Needle Types: Facet Needle Gauge: 20 Ultrasound used to visualize needle placement: Yes Ultrasound used to observe medication spread: Yes Injectate: 0.5% Ropivacaine (see comment for volume) (17 ml + decadron 2 mg) Blood Aspirated: No Pain Paresthesia on Injection Noted: No Resistance on Injection: Normal Image Stored and Saved: Yes Events: Uneventful and Well Tolerated
[2022-09-26 08:47] VITALS: TEMP 96.8
--- NOTE | 2022-09-26 09:04 | P.OP ---
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 The patient was brought into the operating room and placed on table in the supine position. Timeout was taken to confirm correct patient identifiers, correct laterality of surgery, and correct procedure. Once the staff in the room were in agreement with the timeout, the patient was induced and placed under general anesthesia. A well-padded tourniquet was placed on the right ankle and the underneath the right hip to internally rotate the right leg. The right foot was then prepped and draped usual manner. The right. Exsanguinated and the tourniquet inflated to 250 mmHg. Utilizing live fluoroscopy, the second and third tarsometatarsal joints were marked and identified over the skin. A lazy S incision was made centrally between the 2 joints. The incision was deepened down to the subcutaneous tissue careful to identify, avoid, and retract any neurovascular structures and cauterize any bleeding vessels blunt dissection was carried down to the fascia which was incised over the extensor digitorum brevis muscle belly. The muscle was divided and retracted medially and laterally. An incision was made to the capsular and periosteal tissues overlying the second and third tarsometatarsal joints and then the tissue was reflected medially and laterally to expose the joints. A Alexi was used to remove the osteophytes that had built up around the dorsal parts of the joints. The joint surfaces were identified and an osteotome was used to separate the joint surfaces. A better specific for removing cartilage and bone was inserted between the joint surfaces and activated to remove the articular cartilage and subchondral bone. Periodically live fluoroscopy was used to check the positioning of the bur to make sure that both joint surfaces were addressed incompletely debrided. Once adequately debrided the bur was then used to fenestrate the conjoining surfaces to help promote bleeding and bone ridging. The wound is then thoroughly irrigated with antibiotic saline. Augment was then injected into the spaces between the joints to help facilitate bone healing. The joints were held in reduction and then drill holes for a 4 prong compression staple were made across the second tarsometatarsal joint. This is done under live fluoroscopy to ensure proper positioning and that the arms of this cornell on either side of the arthrodesis site. Once drilling was completed the staple was inserted and impacted. The home health lpn was removed allowing compression across his arms of the staple. Then was impacted to its full depth. Final fluoroscopic imaging confirmed the proper placement of the staple. Then attention directed to the third tarsometatarsal joint where to prong staple was going to be placed. The drill guide was placed across the joint and aligned under fluoroscopy. Drill holes were made through the guide and then temporary pins for placement were inserted into the drill holes. This allowed for visualization under fluoroscopy to make sure that the arms of the staple would be on either side of the arthrodesis site. The temporary pins were removed and then the compression staple inserted and impacted. The home health lpn was removed line the arms of the cornell to compress the joint. And then a impactor was used to complete the placement was stable site was flushed with bone. Final fluoroscopic imaging showed compression of the arthrodesis sites and proper placement of hardware. The wound is thoroughly irrigated with antibiotic saline. Deep closure was done with 2-0 Vicryl. Subcu closure done with 4-0 Monocryl. Skin closure was done with4-0 Stratafix in a running subcuticular manner. Dermal glue was applied Lunder dry then covered Steri-Strips and Arthrex jumpstart dressing and then a dry sterile dressing. The tourniquet was released and capillary refill return to all digits on the right foot. The patient was then placed in a well-padded, well molded plaster posterior mold/sugar tong splint. The ankle and foot were held in neutral position as splint dried. Then anesthesia was reversed and the patient was taken recovery with vital signs stable.
[2022-09-26 09:08] VITALS: RESP 16
[2022-09-26] MEDS ORDERED: hydrALAZINE HCL 20 MG/ML 1 ML VIAL IV ONE (09:08)
[2022-09-26 10:07] VITALS: BP 142/72; PULSE 72
== END 2022-09-26 10:38 | disposition home or self-care (01) ==
LOC: OR 05:52
PROVIDERS: ATTEND Podiatrist
DX: M19.071 Primary osteoarthritis, right ankle and foot (principal); G89.18 Other acute postprocedural pain; I10 Essential (primary) hypertension; E78.5 Hyperlipidemia, unspecified; Z86.59 Personal history of other mental and behavioral disorders; Z79.899 Other long term (current) drug therapy
CPT/HCPCS: 28730; 64447; 64445; C1713 ×2; J2250; J0360; J1100; J0690 ×2; J2405; J2795; J2704; J2001

== ENCOUNTER → 2023-12-02 | Day surgery (SDC) | payer MEDICARE ==
[~2023-12-02] MED LIST changes: -LACTATED RINGERS 1,000 ML IV SCH; +LIDOCAINE 1% INJ 10MG/ML (20 ML MDV) ONE; +PROPOFOL 10 MG/ML 20 ML VIAL IV ONE
[2023-12-02] MEDS: IV FLUID CONTINUATION 1,000 ML IV ONE (11:44)
[2023-12-02 11:53] VITALS: RESP 16; TEMP 97.5
[2023-12-02] MEDS: LACTATED RINGERS 1,000 ML IV SCH (12:00)
--- NOTE | 2023-12-02 12:59 | P.PCN ---
Date of Procedure: 12/02/23 Procedure(s) Performed: BRIEF HISTORY: Patient is a 73-year-old pleasant white male scheduled for an elective colonoscopy as a part of screening for colon cancer and family history of colon cancer. His dad was diagnosed with colon cancer. PROCEDURE PERFORMED: Colonoscopy with snare polypectomy. PREOPERATIVE DIAGNOSIS: Screening for colon cancer/family history of colon cancer. IV sedation per Anesthesia. PROCEDURE: After informed consent was obtained, the patient, was brought into the endoscopy unit. IV sedation was administered by Anesthesia under continuous monitoring. Digital rectal examination was normal. Initially the Olympus CF-160 flexible video colonoscope was then inserted in the rectum, gradually advanced into the cecum without any difficulty. Careful examination was performed as the scope was gradually being withdrawn. Ileocecal valve and the appendiceal orifice were visualized and appeared normal. Prep was excellent. Mucosa of the cecum appeared normal. In the ascending colon there was a 5 mm and 7 mm sessile polyp that was removed by cold snare polypectomy. In the transverse colon there was a 4 mm polyp removed by cold snare polypectomy. Rest of the, ascending colon, transverse colon, descending colon, sigmoid colon, and rectum appeared normal. Retroflexion was performed in the rectum and no lesions were seen. The patient tolerated the procedure well. IMPRESSION: 5 mm and 7 mm ascending colon polyp status post cold snare polypectomy 4 mm transverse colon polyp status post cold snare polypectomy Scattered sigmoid diverticulosis RECOMMENDATIONS: Findings of this examination were discussed with the patient as well as his family.. He was advised to follow-up with the biopsy results. The biopsy reveals adenoma he can have repeat colonoscopy in 5 years
[2023-12-02 13:24] VITALS: BP 117/70; PULSE 54
== END ==
LOC: ORWHC2ENDO 11:27
PROVIDERS: ATTEND Internal Medicine Gastroenterology
DX: Z12.11 Encounter for screening for malignant neoplasm of colon (principal); D12.4 Benign neoplasm of descending colon; D12.2 Benign neoplasm of ascending colon; K57.30 Diverticulosis of large intestine without perforation or abscess without bleeding; I10 Essential (primary) hypertension; E78.5 Hyperlipidemia, unspecified; N28.9 Disorder of kidney and ureter, unspecified; H91.90 Unspecified hearing loss, unspecified ear; K75.9 Inflammatory liver disease, unspecified; Z79.899 Other long term (current) drug therapy; Z80.0 Family history of malignant neoplasm of digestive organs; Z86.010 Personal history of colon polyps; Z90.49 Acquired absence of other specified parts of digestive tract
CPT/HCPCS: 88305; 45380; 45385; J2001; J2704

== ENCOUNTER → 2024-03-07 | Outpatient (CLI) | payer MEDICARE ==
--- NOTE | 2024-03-07 15:13 | BD ---
EXAMINATION TYPE: Axial Bone Density DATE OF EXAM: 03/07/2024 CLINICAL HISTORY: 73 years old Male. ICD-10 CODE: M81.0 Osteopenia; Z79.52 , Additional History: Height: 67.5 Weight: 214.1 FRAX RISK QUESTIONS: Alcohol (3 or more units per day): no Family History (Parent hip fracture): no Glucocorticoids (More than 3mos): steroids injections every 3 months for past 5 years (Ex: prednisone, prednisolone, methylprednisolone, dexamethasone, and hydrocortisone). History of Fracture in Adulthood: no Secondary Osteoporosis: 1. Type 1 Diabetes: no 2. Hyperthyroidism: no 3. Menopause before 45: na 4. Malnutrition: no 5. Chronic liver disease: no Rheumatoid Arthritis: no Current Tobacco Use: no RISK FACTORS HISTORY OF: Hip Fracture (Right/Left): no Spine Fracture: no History of Wrist Fracture: RT Wrist When: young adult Surgery to Spine/Hip(right/left)/Wrist (right/left): RT hip replaced 8 years ago MEDICATIONS: Thyroid Medications: no Osteoporosis Medications: no EXAM MEASUREMENTS: Bone mineral densitometry was performed using the [employer] System. Bone mineral density as measured about the Lumbar spine is: ----- L1-L4(G/cm2): 1.719 T Score Values are as follows: ----- L1: 2.6 ----- L2: 2.5 ----- L3: 5.5 ----- L4: 6.8 ----- L1-L4: 4.5 Z Score Values are as follows: ----- L1: 2.3 ----- L2: 2.2 ----- L3: 5.1 ----- L4: 6.5 ----- L1-L4: 4.1 Baseline Study Bone mineral density about the L hip (g/cm2): 1.079 T Score values are as follows: -----L Neck: 0.5 -----L Total: 0.6 Z Score values are as follows: -----L Neck: 1.2 -----L Total: 0.3 Baseline Study FRAX%s: The graph provided illustrates a 6.3% chance for a major osteoporotic fx and a 1.0% chance fo r the hips probability for fx in 10 years time. IMPRESSION: Normal (Values between +1 and -1 indicate normal bone mass). Consider repeating this study in 5 year s or sooner if there is some new clinical indication. NOTE: T-SCORE=SD OF THE YOUNG ADULT MEAN. [facility], , 03/07/2024 3:10 PM
== END | disposition home or self-care (01) ==
LOC: RADBDWWP 10:07
PROVIDERS: ATTEND Internal Medicine Hematology & Oncology
DX: M81.0 Age-related osteoporosis without current pathological fracture (principal); Z79.52 Long term (current) use of systemic steroids
CPT/HCPCS: 77080